=== PATIENT | female | born 1960 | race Caucasian/White ===

== ENCOUNTER 2017-03-17 17:32 | Inpatient (IN) | payer BC ==
--- NOTE | 2017-03-17 18:22 | PDOC ---
History of Present Illness - General Chief Complaint: Pain, Acute Stated Complaint: ABDOMINAL PAIN Time Seen by Provider: 03/17/17 17:46 - History of Present Illness Initial Comments: 03/17/17 18:27 56F with pmh of hypothyroidism present to the ED with right sided lower abdominal pain for the past 2 days. The pain had a sudden onset while she was watching TV. Pain has been constant but worse on movement and palpation. The pain is about 8/10 and doesn't radiate but is also felt in the suprapubic region. The patient states that last night she felt feverish with cold sweat and chills for which she took aspirin and then aleve before sleep. She has decreased appetite, feels gassy. No BM today. No nausea or vomiting or diarrhea. 03/17/17 18:42 Past History - Past Medical History Allergies/Adverse Reactions: Allergies Allergy/AdvReac Type Severity Reaction Status Date / Time No Known Allergies Allergy Verified 10/10/12 10:50 Home Medications: Ambulatory Orders Levothyroxine Sodium [Levo-T] 137 mcg PO DAILY 03/17/17 Levothyroxine Sodium [Unithroid] 150 mcg PO DAILY 03/17/17 Thyroid Disease: Yes - Immunization History Td Vaccination: Yes - Psycho/Social/Smoking Cessation Hx Anxiety: No Suicidal Ideation: No Smoking Status: Yes Smoking History: Current some day smoker Number of Cigarettes Smoked Daily: 1 Information on smoking cessation initiated: Yes 'Breaking Loose' booklet given: 03/17/17 Review of Systems - Review of Systems Constitutional: Yes: Chills, Diaphoresis, Fever ((last night)), Loss of Appetite , Night Sweats HEENTM: No: Symptoms Reported Respiratory: No: Symptoms reported Cardiac (ROS): No: Symptoms Reported ABD/GI: No: Abd. Pain w/ defecation, Diarrhea, Difficulty Swallowing, Nausea, Vomiting : No: Burning, Dysuria, Discharge, Frequency, Hematuria, Pain Neurological: Yes: Headache *Physical Exam - Vital Signs Last Vital Signs Temp Pulse Resp BP Pulse Ox 97.7 F 87 18 125/81 98 03/17/17 17:36 03/17/17 17:36 03/17/17 17:36 03/17/17 17:36 03/17/17 17:36 - Physical Exam General Appearance: Yes: Nourished, Appropriately Dressed. No: Apparent Distress HEENT: positive: EOMI, SANGITA, Normal ENT Inspection Neck: positive: Tender, Trachea midline, Supple. negative: Thyromegaly Respiratory/Chest: positive: Lungs Clear, Normal Breath Sounds. negative: Chest Tender, Respiratory Distress Cardiovascular: positive: Regular Rhythm, Regular Rate, S1, S2 Vascular Pulses: Dorsalis-Pedis (R): 2+, Doralis-Pedis (L): 2+ Gastrointestinal/Abdominal: positive: Tender, Increased Bowel Sounds, Protuberent, Distended, Tenderness (more intense over McBurney's point, less so suprapubically and over the R CVA). negative: Guarding, Rebound, Hernia Musculoskeletal: positive: Normal Inspection, CVA Tenderness (R) (mild) Neurologic: positive: Fully Oriented, Alert, Normal Mood/Affect ED Treatment Course - LABORATORY CBC & Chemistry Diagram: 03/17/17 18:40 03/17/17 18:40 Medical Decision Making - Medical Decision Making 03/17/17 18:40 56F with pmh of hypothyroidism presents with lower right quadrant pain for the past 2 days. Diff: appendicitis, ruptured ovarian cyst. CT abdomen/pelvis pending with CBC and CMP. R/o Appendicitis. 03/17/17 18:43 03/17/17 19:07 *DC/Admit/Observation/Transfer Diagnosis at time of Disposition: Lower abdominal pain - Discharge Dispostion Condition at time of disposition: Stable
[2017-03-17] MEDS ORDERED: SODIUM CHLORIDE 1,000 ML IV STA (18:36)
--- NOTE | 2017-03-17 18:36 | PDOC ---
Attending Attestation - Resident Resident Name: MonetAntonio - ED Attending Attestation I have performed the following: I have examined & evaluated the patient, The case was reviewed & discussed with the resident, I agree w/resident's findings & plan, Exceptions are as noted - HPI HPI: 03/17/17 18:34 Agree with the resident's HPI as documented in the electronic medical record. - Physicial Exam PE: 03/17/17 18:34 Agree with the resident's physical examination as documented in the electronic medical record. - Medical Decision Making 03/17/17 18:34 56-year-old female with history of thyroid disease who presents the emergency department with 2 day history of abdominal pain described as starting in the periumbilical region and now in the right lower quadrant with some anorexia but no nausea or vomiting; she had reported fever at home yesterday but is afebrile in the ED today. She has point tenderness in the right lower quadrant with no rebound or guarding. Differential diagnosis includes but is not limited to: Appendicitis, ovarian cyst, musculoskeletal pain. Plan: 1. Labs 2. CT scan of the abdomen and pelvis 3. Pain management 4. IV fluids for hydration 5. Observe and reevaluate
[2017-03-17 18:52] LABS: BASOPHIL 3.4 % (0-2.0); EOSINOPHIL 1.2 % (0-4.5); MCH 30.5 pg (25.7-33.7); MEAN CELL VOLUME 89.9 fl (80-96); MEAN PLT VOLUME 9.6 fl (7.5-11.1); NEUTROPHILS 56.7 % (42.8-82.8); PLATELET COUNT 212 K/MM3 (134-434); RDW 12.6 % (11.6-15.6); WHITE BLOOD COUNT 10.7 K/mm3 (4.0-10.8)
[2017-03-17 19:10] LABS: ALBUMIN 3.8 g/dl (3.5-5.0); ALK PHOS 68 U/L (32-92); ANION GAP 7 (8-16); BILIRUBIN,TOTAL 0.6 mg/dl (0.2-1.0); CALCIUM 8.9 mg/dl (8.4-10.2); CO2 24 mmol/L (22-28); CREATININE 0.8 mg/dl (0.6-1.3); GLUCOSE,RANDOM 120 mg/dl (74-106); SGOT/AST 18 U/L (10-42); SGPT/ALT 18 U/L (10-40); TOT PROT 6.8 g/dl (6.4-8.3)
[2017-03-17 19:28] LABS: PH,URINE 5.5 (4.5-8); URINE APPEARANCE Clear; URINE BILIRUBIN Negative (NEGATIVE); URINE BLOOD Trace-intact (NEGATIVE); URINE COLOR YELLOW; URINE GLUCOSE (UA) Negative (NEGATIVE); URINE KETONE Negative (NEGATIVE); URINE LEUK ESTERASE 1+ (NEGATIVE); URINE NITRITE Positive (NEGATIVE); URINE PROTEIN Trace (NEGATIVE)
--- NOTE | 2017-03-17 19:33 | PDOC ---
*Physical Exam - Vital Signs Last Vital Signs Temp Pulse Resp BP Pulse Ox 97.7 F 87 18 125/81 98 03/17/17 17:36 03/17/17 17:36 03/17/17 17:36 03/17/17 17:36 03/17/17 17:36 <Ana Hill - Last Filed: 03/17/17 21:21> - Vital Signs Last Vital Signs Temp Pulse Resp BP Pulse Ox 97.7 F 87 18 125/81 98 03/17/17 17:36 03/17/17 17:36 03/17/17 17:36 03/17/17 17:36 03/17/17 17:36 <Susan Villareal [place] - Last Filed: 03/17/17 22:57> ED Treatment Course - LABORATORY CBC & Chemistry Diagram: 03/17/17 18:40 03/17/17 18:40 - ADDITIONAL ORDERS Additional order review: Laboratory Results 03/17/17 03/17/17 18:45 18:40 Sodium 135 L Potassium 4.1 Chloride 104 Carbon Dioxide 24 Anion Gap 7 L BUN 23 H Creatinine 0.8 Creat Clearance w eGFR > 60 Random Glucose 120 H Calcium 8.9 Total Bilirubin 0.6 AST 18 ALT 18 Alkaline Phosphatase 68 Total Protein 6.8 Albumin 3.8 Urine Color Yellow Urine Appearance Clear Urine pH 5.5 Ur Specific [place] 1.020 Urine Protein Trace Urine Glucose (UA) Negative Urine Ketones Negative Urine Blood Trace-intact H Urine Nitrite Positive Urine Bilirubin Negative Urine Urobilinogen 1.0 Ur Leukocyte Esterase 1+ H 03/17/17 18:40 RBC 4.55 MCV 89.9 MCHC 34.0 RDW 12.6 MPV 9.6 Neutrophils % 56.7 Lymphocytes % 31.8 Monocytes % 6.9 Eosinophils % 1.2 Basophils % 3.4 H - RADIOLOGY Radiograph Interpretation: 03/17/17 20:23 Abdominal/Pelvic CT as reviewed by Dr. Vaz reports acute appendicitis with an appendicolith measuring 4 mm that may be extraluminal surrounded by a small plegmon measuring 1.2 cm. No drainable collection/abscess is identified. Right adrenal low attenuation mass measuring 3.2 x 2.3 cm likely representing an adrenal adenoma. Left renal simple exophytic cyst measuring 4.1 cm. Tiny fat- containing umibilical hernia. Questionable tiny gallstones within a partially distended gallbladder. - Medications Given in the ED: ED Medications Discontinued Medications Generic Name Dose Route Start Last Admin Trade Name Kiah PRN Reason Stop Dose Admin Sodium Chloride 1,000 mls @ 1,000 mls/hr 03/17/17 18:36 03/17/17 18:42 Normal Saline - IV 03/17/17 19:35 1,000 mls/hr ASDIR STA Administration <Ana Hill - Last Filed: 03/17/17 21:21> - LABORATORY CBC & Chemistry Diagram: 03/17/17 18:40 03/17/17 18:40 - ADDITIONAL ORDERS Additional order review: Laboratory Results 03/17/17 03/17/17 18:45 18:40 Sodium 135 L Potassium 4.1 Chloride 104 Carbon Dioxide 24 Anion Gap 7 L BUN 23 H Creatinine 0.8 Creat Clearance w eGFR > 60 Random Glucose 120 H Calcium 8.9 Total Bilirubin 0.6 AST 18 ALT 18 Alkaline Phosphatase 68 Total Protein 6.8 Albumin 3.8 Urine Color Yellow Urine Appearance Clear Urine pH 5.5 Ur Specific [place] 1.020 Urine Protein Trace Urine Glucose (UA) Negative Urine Ketones Negative Urine Blood Trace-intact H Urine Nitrite Positive Urine Bilirubin Negative Urine Urobilinogen 1.0 Ur Leukocyte Esterase 1+ H 03/17/17 18:40 RBC 4.55 MCV 89.9 MCHC 34.0 RDW 12.6 MPV 9.6 Neutrophils % 56.7 Lymphocytes % 31.8 Monocytes % 6.9 Eosinophils % 1.2 Basophils % 3.4 H <Susan Villareal - Last Filed: 03/17/17 22:57> Progress Note - Progress Note Progress Note: Care of this patient received from Dr. Harrington. As noted above, abdominal/pelvic CT findings consistent with acute appendicitis : Appendiceal wall thickening with periappendiceal stranding. No evidence of perforation/abscess cavity. Findings discussed with the patient. Zosyn 3.375g IV ordered. Patient's PMD, Dr. Meraz, contacted and case discussed with her. Patient does not admit here. Patient will be admitted to physician concrete batcher for service admissions: Dr. Marie. Meanwhile, Xavi Gu/Josep/Beth. Dr Campos contacted and case discussed with him. The patient should be kept on Zosyn, with surgery planned tomorrow. Dr. Marie contacted; patient will be admitted to her service. Dr. Shah consult for infectious disease (case discussed with him ; he will write orders for Zosyn IV to be continued) 12-lead electrocardiogram performed and interpreted by me. This showed normal sinus rhythm at 77 bpm; axis, intervals are normal; no evidence of acute ST or T -wave abnormality; there is poor R-wave progression in the precordial leads The patient continued to be comfortable without significant nausea or pain; she was transferred to admission bed in stable condition. <Susan Villareal - Last Filed: 03/17/17 22:57> Medical Decision Making - Medical Decision Making 03/17/17 21:21 Phone call placed to patient's PCP, Dr. Meraz. Case discussed. Phone call placed to concrete batcher general surgeon, Dr. Campos, case discussed. Phone call placed to hospitalist Dr. Marie, case discussed. <Ana Hill - Last Filed: 03/17/17 21:21> *DC/Admit/Observation/Transfer - Attestations Scribe Attestion: 03/17/17 20:26 Documentation prepared by Ana Hill, acting as medical review coordinator for Susan Villareal MD. <Ana Hill - Last Filed: 03/17/17 21:21> - Discharge Dispostion Admit: Yes <Susan Villareal - Last Filed: 03/17/17 22:57> Diagnosis at time of Disposition: Acute appendicitis Qualifiers: Acute appendicitis type: with localized peritonitis Qualified Code(s): K35.3 - Acute appendicitis with localized peritonitis - Discharge Dispostion Condition at time of disposition: Stable - Referrals - Patient Instructions - Post Discharge Activity
[2017-03-17] MEDS ORDERED: PIPERACILLIN/TAZOB 3.375 GM 3.375 GM in DEXTROSE 5%-WATER - 50 ML IVPB ONE (20:30)
[2017-03-17] MEDS ORDERED: PIPERACILLIN/TAZOBACTAM 3.375 GM VIAL IVPB ONE (20:35)
[2017-03-17 20:37] LABS: URINE BACTERIA FEW /hpf (NEGATIVE); URINE WBC 15-30 (3-5)
[2017-03-17 22:07] VITALS: BMI 25.7
[2017-03-17] MEDS ORDERED: ONDANSETRON 4 MG/2 ML VIAL IVPB PRN (22:36)
[2017-03-18] MEDS: PIPERACILLIN/TAZOB 3.375 GM 50 ML IVPB SCH ×3 (01:59→18:55)
[2017-03-18] MEDS: SODIUM CHLORIDE 1,000 ML IV SCH (01:59)
[2017-03-18 08:16] LABS: MCH 31.1 pg (25.7-33.7); MCHC 34.1 g/dl (32.0-36.0); MEAN CELL VOLUME 91.1 fl (80-96); MEAN PLT VOLUME 9.8 fl (7.5-11.1); PLATELET COUNT 188 K/MM3 (134-434); RDW 12.5 % (11.6-15.6); WHITE BLOOD COUNT 10.4 K/mm3 (4.0-10.8)
[2017-03-18 08:22] LABS: ALBUMIN 3.2 g/dl (3.5-5.0); ALK PHOS 59 U/L (32-92); ANION GAP 6 (8-16); BILIRUBIN,TOTAL 0.7 mg/dl (0.2-1.0); CALCIUM 8.5 mg/dl (8.4-10.2); CO2 22 mmol/L (22-28); CREATININE 0.8 mg/dl (0.6-1.3); GLUCOSE,RANDOM 114 mg/dl (74-106); SGOT/AST 17 U/L (10-42); SGPT/ALT 15 U/L (10-40); TOT PROT 5.9 g/dl (6.4-8.3)
[2017-03-18 08:35] LABS: INR 1.11 (0.82-1.09); PROTHROMBIN TIME (PATIENT) 12.4 SEC (10.2-13.0)
[2017-03-18] MEDS: PANTOPRAZOLE SODIUM 40 MG/100 ML PRE-DOCKED IVPB SCH (09:32)
--- NOTE | 2017-03-18 13:36 | PN ---
Progress Note (short form) - Note Progress Note: surgery Pt seen and examined. full consult dictated. 56f admitted for appendicitis. 2 days abd pain without nausea and found to have appendicitis on ct. Pt admitted and placed on Zosyn and feels better. afebrile abd- soft, moderate rlq tenderness without rebound or guarding. wbc wnl. Plan- clinically acute appendicitis. will move in direction of surgery. agree with zosyn.
[2017-03-18] MEDS ORDERED: MIDAZOLAM HCL 2 MG/2 ML SINGLE DOSE VIAL ONE (13:44)
[2017-03-18] MEDS ORDERED: ROCURONIUM BROMIDE 50 MG/5 ML VIAL ONE (14:06)
--- NOTE | 2017-03-18 14:06 | CON.CARD ---
Cardiology Consult (text) - Consultation Consultation Note: Cardiology consult was requested by Dr. Marie for pre-op cardiac evaluation. However, patient has acute appendicitis and patient may proceed without further cardiac work-up or intervention as it will only delay her needed surgery. Patient is currently being taken for surgery, which in my opinion is appropriate. This was discussed with Dr. Marie.
[2017-03-18] MEDS ORDERED: NEOSTIGMINE METHYLSULFATE 0.5 MG/ML - 10 ML MDV ONE (15:11)
[2017-03-18] MEDS ORDERED: ONDANSETRON 4 MG/2 ML VIAL ONE (15:11)
[2017-03-18] MEDS ORDERED: DEXAMETHASONE SOD PHOSPHATE 4 MG/1 ML VIAL ONE (15:11)
--- NOTE | 2017-03-18 15:28 | OP ---
Operative Note - Note: Operative Date: 03/18/17 Pre-Operative Diagnosis: acute appendicitis Operation: laparoscopic appendectomy, lavage Findings: retroperitoneal appendix with contained perforation at tip Post-Operative Diagnosis: Same as Pre-op Surgeon: Lionel Campos Anesthesiologist/POST SECONDARY PROFESSIONAL: Bernie Reina Specimens Removed: appendix Estimated Blood Loss (mls): 20 Drains & Tubes with Location: chiquita abscess cavity Operative Report Dictated: Yes
[2017-03-18] MEDS ORDERED: ONDANSETRON 4 MG/2 ML VIAL IVPUSH PRN (15:37)
--- NOTE | 2017-03-18 15:37 | HP ---
Admitting History and Physical - Primary Care Physician PCP: Christina Marie - Admission Chief Complaint: abdominal pain History of Present Illness: 56-year-old female with history of thyroid disease who presents the emergency department with 2 day history of abdominal pain described as starting in the periumbilical region and now in the right lower quadrant with some anorexia but no nausea or vomiting; she had reported fever at home yesterday but is afebrile in t She has point tenderness in the right lower quadrant with no rebound or guarding. - Past Medical History ...: No Endocrine: Yes: Hypothyroidism - Smoking History Smoking history: Current some day smoker Have you smoked in the past 12 months: No Aproximately how many cigarettes per day: 3 - Alcohol/Substance Use Hx Alcohol Use: Yes (socially) Home Medications - Allergies Allergies/Adverse Reactions: Allergies Allergy/AdvReac Type Severity Reaction Status Date / Time No Known Allergies Allergy Verified 10/10/12 10:50 - Home Medications Home Medications: Ambulatory Orders Levothyroxine Sodium [Levo-T] 137 mcg PO DAILY 03/17/17 Levothyroxine Sodium [Unithroid] 150 mcg PO DAILY 03/17/17 Amoxicillin/Potassium Clav [Augmentin 875-125 Tablet] 1 each PO BID #14 tablet 03/19/17 Review of Systems - Review of Systems Gastrointestinal: reports: Abdominal Pain Physical Examination Vital Signs: Vital Signs Temperature 98.2 F 03/18/17 05:59 Pulse Rate 77 03/18/17 05:59 Respiratory Rate 20 03/18/17 05:59 Blood Pressure 95/54 03/18/17 05:59 O2 Sat by Pulse Oximetry (%) 96 03/18/17 05:59 Constitutional: Yes: Calm HENT: Yes: Atraumatic Neck: Yes: Supple Cardiovascular: Yes: Regular Rate and Rhythm Respiratory: Yes: CTA Bilaterally Gastrointestinal: Yes: Normal Bowel Sounds, Tenderness (at the surgery site) Extremities: Yes: WNL Labs: CBC, BMP 03/18/17 07:45 03/18/17 07:45 Problem List - Problems (1) Acute appendicitis Assessment/Plan: came back from OR after surgery IVF IV ABX full liquid diet Code(s): K35.80 - UNSPECIFIED ACUTE APPENDICITIS Qualifiers: Acute appendicitis type: with localized peritonitis Qualified Code(s): K35.3 - Acute appendicitis with localized peritonitis (2) Lower abdominal pain Code(s): R10.30 - LOWER ABDOMINAL PAIN, UNSPECIFIED Assessment/Plan Laboratory Tests 03/17/17 03/17/17 03/17/17 18:40 18:40 18:45 WBC 10.7 RBC 4.55 Hgb 13.9 Hct 40.9 MCV 89.9 MCH 30.5 MCHC 34.0 RDW 12.6 Plt Count 212 MPV 9.6 Neutrophils % 56.7 Lymphocytes % 31.8 Monocytes % 6.9 Eosinophils % 1.2 Basophils % 3.4 H INR PTT (Actin FS) Sodium 135 L Potassium 4.1 Chloride 104 Carbon Dioxide 24 Anion Gap 7 L BUN 23 H Creatinine 0.8 Creat Clearance w eGFR > 60 Random Glucose 120 H Calcium 8.9 Total Bilirubin 0.6 AST 18 ALT 18 Alkaline Phosphatase 68 Total Protein 6.8 Albumin 3.8 Urine Color Yellow Urine Appearance Clear Urine pH 5.5 Ur Specific [place] 1.020 Urine Protein Trace Urine Glucose (UA) Negative Urine Ketones Negative Urine Blood Trace-intact H Urine Nitrite Positive Urine Bilirubin Negative Urine Urobilinogen 1.0 Ur Leukocyte Esterase 1+ H Urine RBC 2-3 Urine WBC 15-30 Ur Epithelial Cells Few Urine Bacteria Few 03/18/17 03/18/17 03/18/17 07:45 07:45 07:45 WBC 10.4 RBC 4.03 Hgb 12.5 D Hct 36.7 MCV 91.1 MCH 31.1 MCHC 34.1 RDW 12.5 Plt Count 188 MPV 9.8 Neutrophils % Lymphocytes % Monocytes % Eosinophils % Basophils % INR 1.11 PTT (Actin FS) 26.0 L Sodium 136 Potassium 4.1 Chloride 108 H Carbon Dioxide 22 Anion Gap 6 L BUN 14 D Creatinine 0.8 Creat Clearance w eGFR > 60 Random Glucose 114 H Calcium 8.5 Total Bilirubin 0.7 AST 17 ALT 15 Alkaline Phosphatase 59 Total Protein 5.9 L Albumin 3.2 L Urine Color Urine Appearance Urine pH Ur Specific [place] Urine Protein Urine Glucose (UA) Urine Ketones Urine Blood Urine Nitrite Urine Bilirubin Urine Urobilinogen Ur Leukocyte Esterase Urine RBC Urine WBC Ur Epithelial Cells Urine Bacteria Active Medications Generic Name Dose Route Start Last Admin Trade Name Freq PRN Reason Stop Dose Admin Acetaminophen 1,000 mg 03/17/17 22:37 Ofirmev Injection - IVPB Q6H PRN PAIN Fentanyl 50 mcg 03/18/17 15:37 Sublimaze Injection - IVPUSH 03/21/17 15:38 [id number] PRN PAIN Piperacillin Sod/Tazobactam Sod 50 mls @ 100 mls/hr 03/18/17 02:00 03/18/17 09: 32 Zosyn 3.375gm Ivpb (Pre-Docked) IVPB 100 mls/hr Q8H-IV XAVIER Administration Protocol Sodium Chloride 1,000 mls @ 100 mls/hr 03/17/17 22:45 03/18/17 01:59 Normal Saline - IV 100 mls/hr ASDIR XAVIER Administration Lactated Ringer's 1,000 mls @ 125 mls/hr 03/18/17 15:45 Lactated Ringers Solution IV ASDIR XAVIER Ondansetron HCl 4 mg 03/17/17 22:36 Zofran Injection IVPB Q6H PRN NAUSEA AND/OR VOMITING Ondansetron HCl 4 mg 03/18/17 15:37 Zofran Injection IVPUSH 03/18/17 21:38 Q6H PRN NAUSEA AND/OR VOMITING Pantoprazole Sodium 40 mg 03/18/17 10:00 03/18/17 09:32 Protonix 40mg Ivpb (Pre-Docked) IVPB 40 mg DAILY XAVIER Administration
[2017-03-18] MEDS ORDERED: LACTATED RINGERS SOLUTION 1,000 ML IV SCH (15:45)
[2017-03-18] MEDS ORDERED: oxyCODONE HCL 5 MG TABLET PO PRN (15:45)
[2017-03-18] MEDS ORDERED: morphine CARPU-JECT 4 MG/1 ML DISP.SYRIN IVPB PRN (15:45)
[2017-03-18] MEDS ORDERED: PROMETHAZINE HCL 25 MG/1 ML VIAL ONE (15:46)
[2017-03-18] MEDS: PROMETHAZINE HCL 25 MG/1 ML VIAL IVPUSH PRN ×2 (15:47→16:05)
[2017-03-18] MEDS ORDERED: ACETAMINOPHEN INJECTION 100 ML IVPB ONE (16:08)
[2017-03-18] MEDS: ACETAMINOPHEN 1000 MG/100 ML VIAL (NON FORMULARY) IVPB PRN (16:10)
[2017-03-18] MEDS ORDERED: LEVOTHYROXINE SODIUM 137 MCG PO SCH (16:15)
--- NOTE | 2017-03-18 17:34 | CONSULT ---
Consult Consult Specialty:: infectious diseases Referred by:: Reason for Consultation:: ac appendicitis - History of Present Illness Chief Complaint: abd pain History of Present Illness: 56F with pmh of hypothyroidism with right sided lower abdominal pain for the past 2 days which started sudeenly patient did not feel well and came to the hospital and was diagnosed with acute appendicitis patient taken to the operating room and was operated and now feels well and has a chiquita drain in place no complaints as of now except pain - History Source History Provided By: Patient Limitations to Obtaining History: No Limitations - Past Medical History ...: No - Alcohol/Substance Use Hx Alcohol Use: Yes (socially) - Smoking History Smoking history: Current some day smoker Have you smoked in the past 12 months: No Aproximately how many cigarettes per day: 3 Home Medications - Allergies Allergies/Adverse Reactions: Allergies Allergy/AdvReac Type Severity Reaction Status Date / Time No Known Allergies Allergy Verified 10/10/12 10:50 - Home Medications Home Medications: Ambulatory Orders Levothyroxine Sodium [Levo-T] 137 mcg PO DAILY 03/17/17 Levothyroxine Sodium [Unithroid] 150 mcg PO DAILY 03/17/17 Review of Systems - Review of Systems Constitutional: reports: Fever Eyes: reports: No Symptoms HENT: reports: No Symptoms Neck: reports: No Symptoms Cardiovascular: reports: No Symptoms Respiratory: reports: No Symptoms Gastrointestinal: reports: Abdominal Pain Genitourinary: reports: No Symptoms Musculoskeletal: reports: No Symptoms Integumentary: reports: No Symptoms Neurological: reports: No Symptoms Endocrine: reports: No Symptoms Hematology/Lymphatic: reports: No Symptoms Psychiatric: reports: No Symptoms Physical Exam Vital Signs: Vital Signs Temperature 98.2 F 03/18/17 17:32 Pulse Rate 58 L 03/18/17 17:32 Respiratory Rate 17 03/18/17 17:32 Blood Pressure 110/76 03/18/17 17:32 O2 Sat by Pulse Oximetry (%) 99 03/18/17 16:20 Constitutional: Yes: Well Nourished, Calm, Mild Distress Eyes: Yes: Conjunctiva Clear HENT: Yes: Atraumatic, Normocephalic Neck: Yes: Supple, Trachea Midline Cardiovascular: Yes: Regular Rate and Rhythm Respiratory: Yes: Regular, CTA Bilaterally Gastrointestinal: Yes: Soft, Tenderness (at the operated site), Other (chiquita drain in place) Musculoskeletal: Yes: WNL Extremities: Yes: WNL Wound/Incision: Yes: Clean/Dry Neurological: Yes: Alert, Oriented Psychiatric: Yes: Alert, Oriented Labs: CBC, BMP 03/18/17 07:45 03/18/17 07:45 Imaging - Results Cat Scan: Report Reviewed, Image Reviewed Assessment/Plan - Problems (1) Acute appendicitis wiht perforation at the tip Code(s): K35.80 - UNSPECIFIED ACUTE APPENDICITIS Qualifiers: Acute appendicitis type: with localized peritonitis Qualified Code(s): K35.3 - Acute appendicitis with localized peritonitis (2) Lower abdominal pain Code(s): R10.30 - LOWER ABDOMINAL PAIN, UNSPECIFIED hypothyroidism plan continue iv abx monitor once patient stable will consider deescalating rest as per primary
--- NOTE | 2017-03-18 17:57 | CONS ---
DATE OF CONSULTATION: 03/18/2017 REASON FOR CONSULTATION: Acute appendicitis. This is an emergency room consultation at request of the emergency room physician. BRIEF HISTORY: This is a 56-year-old female who presented to [facility] with 2-day history of lower abdominal pain. She denied nausea, denied vomiting, denied diarrhea, denied blood in her stool. While in the emergency room, she was noted to have right lower quadrant tenderness and had a CAT scan of her abdomen and pelvis which was consistent with acute appendicitis. She was admitted to the hospital, started on intravenous Zosyn antibiotic, and a surgical consultation was requested. Overnight, she feels somewhat better. PAST MEDICAL HISTORY: Significant for hypothyroid disease. ALLERGIES: She has no known drug allergies. HOME MEDICATIONS: Include Synthroid. PAST SURGICAL HISTORY: Includes a shoulder surgery without complication. SOCIAL HISTORY: Positive for occasional alcohol as well as tobacco consumption. She has been encouraged to quit. FAMILY HISTORY: Significant for a sister with lymphoma. REVIEW OF SYSTEMS: General: Denies fatigue or malaise. Cardiac: Denies chest pain or palpitations. Respiratory: Denies shortness of breath or wheeze. Gastrointestinal: As stated in the HPI. Genitourinary: Denies dysuria. Musculoskeletal: Denies joint pain and joint swelling. Psychiatric: Denies anxiety, depression, or hearing voices. PHYSICAL EXAMINATION: General: This is a well-developed, well-nourished, 56-year-old female in no distress. Vital Signs: She is afebrile. Her vital signs are stable. HEENT: Her head is normocephalic. Her sclerae are anicteric. Neck: Supple. Chest: Clear. Abdomen: Soft. It is nondistended. She has no surgical scars. She has moderate right lower quadrant tenderness without rebound or guarding. Extremities: No edema. LABORATORY DATA: On review of her laboratory, white blood cell count is normal at 10.4. Her chemistries are unremarkable. IMAGING: Review of her imaging is as stated in HPI. ASSESSMENT: This is a 56-year-old female with right lower quadrant pain, right lower quadrant tenderness, and CAT scan evidence of acute appendicitis. Clinically, this is acute appendicitis. I agree with admission. I agree with Zosyn antibiotic to cover Escherichia coli and other enteric as well as [id number]. At this point, we will move in the direction of surgery. Risks and benefits of surgery have been explained to the patient in detail. These are including, but not limited to, the possibility of conversion to open, the possibility of injury to viscera or bladder, the possibility of blood loss requiring blood transfusion, the possibility of staple line dehiscence, the possibility of infection, the possibility of future obstruction, the possibility of future hernia, plus a multitude of medical risks including, but not limited to, cardiac, neurologic, pulmonary, and vascular complications and even . Patient understands these risks and is agreeable to surgery. She has also been offered medical management of appendicitis and declines. She prefers a more definitive nature of surgery to likely decrease length of stay and the ruling out of an appendiceal neoplasm. Also of note, the patient does appear to have a small ventral hernia on exam. This will not be addressed during the appendiceal surgery. DO BILLY FERNANDES/[id number]
[2017-03-18] MEDS ORDERED: LEVOTHYROXINE NA 25 MCG TABLET (FP) ONE (18:47)
[2017-03-18] MEDS ORDERED: LEVOTHYROXINE NA 112 MCG TABLET (FP) ONE (18:47)
[2017-03-18] MEDS: LEVOTHYROXINE 112 MCG, LEVOTHYROXINE 25 MCG PO SCH (18:55)
[2017-03-19] MEDS: PIPERACILLIN/TAZOB 3.375 GM 50 ML IVPB SCH ×2 (01:54→09:24)
[2017-03-19] MEDS ORDERED: LEVOTHYROXINE NA 112 MCG TABLET (FP) ONE (06:32)
[2017-03-19] MEDS ORDERED: LEVOTHYROXINE NA 25 MCG TABLET (FP) ONE (06:32)
[2017-03-19 06:39] VITALS: PULSE 60
[2017-03-19] MEDS: LEVOTHYROXINE 112 MCG, LEVOTHYROXINE 25 MCG PO SCH (06:39)
[2017-03-19] MEDS ORDERED: LEVOTHYROXINE 112 MCG, LEVOTHYROXINE 25 MCG PO SCH ×2 (07:00)
[2017-03-19 08:12] LABS: MCH 31.8 pg (25.7-33.7); MCHC 34.4 g/dl (32.0-36.0); MEAN CELL VOLUME 92.4 fl (80-96); MEAN PLT VOLUME 10.6 fl (7.5-11.1); PLATELET COUNT 165 K/MM3 (134-434); RDW 12.5 % (11.6-15.6); WHITE BLOOD COUNT 12.1 K/mm3 (4.0-10.8)
[2017-03-19 08:13] LABS: BASOPHIL 0.7 % (0-2.0); EOSINOPHIL 0.1 % (0-4.5); MCHC 35.3 g/dl (32.0-36.0); MEAN CELL VOLUME 90.6 fl (80-96); MEAN PLT VOLUME 10.3 fl (7.5-11.1); NEUTROPHILS 76.5 % (42.8-82.8); PLATELET COUNT 165 K/MM3 (134-434); RDW 12.5 % (11.6-15.6); WHITE BLOOD COUNT 11.8 K/mm3 (4.0-10.8)
[2017-03-19] MEDS: ACETAMINOPHEN 1000 MG/100 ML VIAL (NON FORMULARY) IVPB PRN (08:16)
[2017-03-19 08:22] LABS: ALK PHOS 55 U/L (32-92); ANION GAP 8 (8-16); BILIRUBIN,TOTAL 0.4 mg/dl (0.2-1.0); CALCIUM 8.8 mg/dl (8.4-10.2); CO2 24 mmol/L (22-28); CREATININE 0.8 mg/dl (0.6-1.3); GLUCOSE,RANDOM 131 mg/dl (74-106); SGOT/AST 33 U/L (10-42); SGPT/ALT 33 U/L (10-40); TOT PROT 5.8 g/dl (6.4-8.3)
[2017-03-19] MEDS: SODIUM CHLORIDE 1,000 ML IV SCH (09:11)
[2017-03-19] MEDS: PANTOPRAZOLE SODIUM 40 MG/100 ML PRE-DOCKED IVPB SCH (09:24)
[2017-03-19] MEDS ORDERED: ENOXAPARIN NA (PORCINE) 40 MG/0.4 ML DISP.SYRIN SQ SCH (10:00)
--- NOTE | 2017-03-19 10:48 | OP ---
DATE OF OPERATION: 03/18/2017 PREOPERATIVE DIAGNOSIS: Acute appendicitis. POSTOPERATIVE DIAGNOSIS: Acute appendicitis. PROCEDURE: Laparoscopic appendectomy, drainage of abscess, lavage. SURGEON: Lionel Campos DO CATALOGUE ILLUSTRATOR: None. ANESTHESIOLOGIST: Bernie Reina MD SPECIMEN: Appendix. INTRAOPERATIVE FINDINGS: A retrocecal appendix with a perforated, contained tip of the appendix. DRAINS: Nikolai-Zheng drain in the abscess cavity. BLOOD LOSS: Approximately 30 mL. COMPLICATIONS: None. DISPOSITION: Recovery room in stable condition. BRIEF HISTORY: This is a 56-year-old female who was admitted to [facility] for acute appendicitis. She presents now for surgery. She was placed on Zosyn antibiotic. DESCRIPTION OF PROCEDURE: The patient was placed in the supine position. After general anesthesia was initiated, the abdomen was prepped and draped in sterile fashion, and a Mancini catheter was inserted. Next, a vertical incision was made infraumbilical with scalpel used to go through skin and subcutaneous tissue. A ventral hernia was noted above this incision, which was not addressed at the time of surgery. Next, a 0 Vicryl stitch was placed across the fascial defect and used to secure the Betzaida trocar. Pneumoperitoneum was then created, followed by insertion of a 5-mm 30-degree laparoscope. Next, two 5-mm trocars were placed; one was suprapubic with care to avoid injuring the bladder and one in the left lower quadrant lateral to rectus muscle. At this point, attention was turned toward the right lower quadrant. The appendix was seen. Base appeared normal, but the distal portion was retrocecal, and the tip was thickened and inflamed. At this point, a window was made at the base. The MultiFire vascular load 30-mm stapler was used to divide the appendix at its base. The staple line was inspected. It was intact. There was no bleeding. No breaks. No sign of ischemia. The LigaSure device was then used to divide the mesoappendix in multiple welds. The retroperitoneal attachments of the appendix were taken down. Upon the lateral and posterior cecum, a small area of necrosis and abscess cavity with approximately 3 mL of pus was encountered. This was suctioned and irrigated. The tip of the appendix, which was hardened, was removed in fragments. The remainder of the appendix was placed in a specimen bag, removed through the infraumbilical trocar site and sent to Pathology marked as specimen. A vigorous lavage was done of this abscess cavity. The pelvis was also suctioned and irrigated. A Nikolai- Zheng drain was placed with its tip in the abscess cavity and brought out through the suprapubic trocar site and secured with a silk drain stitch. Trocars were then removed under direct visualization. No bleeding was noted. The fascia of the infraumbilical trocar site was then closed with multiple interrupted 0 Vicryl sutures. The 2 remaining skin incisions were closed with subcuticular Biosyn, and Dermabond dressing was placed. Patient tolerated the procedure well, and the operation terminated. Mancini catheter, which was placed in the beginning of the operation, was removed at the end. DO BILLY FERNANDES/[id number] MTDD
--- NOTE | 2017-03-19 11:08 | PN ---
Progress Note, Physician History of Present Illness: Pt currently alert and fully responsive. Reports mild RLQ tenderness. Currently on full liquid diet, without nausea/vomiting. Afebrile. No other complaints - Current Medication List Current Medications: Active Medications Acetaminophen (Ofirmev Injection -) 1,000 mg IVPB Q6H PRN PRN Reason: PAIN Last Admin: 03/19/17 08:16 Dose: 1,000 mg Enoxaparin Sodium (Lovenox -) 40 mg SQ DAILY [facility] Last Admin: 03/19/17 09:24 Dose: 40 mg Fentanyl (Sublimaze Injection -) 50 mcg IVPUSH [id number] PRN PRN Reason: PAIN Stop: 03/21/17 15:38 Last Admin: 03/18/17 16:18 Dose: 50 mcg Piperacillin Sod/Tazobactam Sod (Zosyn 3.375gm Ivpb (Pre-Docked)) 50 mls @ 100 mls/hr IVPB Q8H-IV XAVIER PRN Reason: Protocol Last Admin: 03/19/17 09:24 Dose: 100 mls/hr Sodium Chloride (Normal Saline -) 1,000 mls @ 100 mls/hr IV ASDIR [facility] Last Admin: 03/19/17 09:11 Dose: Not Given Lactated Ringer's (Lactated Ringers Solution) 1,000 mls @ 125 mls/hr IV ASDIR X[facility]IER Last Admin: 03/19/17 09:11 Dose: Not Given Levothyroxine Sodium 112 mcg/ (Levothyroxine Sodium 25 mcg) 137 mcg PO DAILY@ 0700 [facility] Last Admin: 03/19/17 06:39 Dose: 137 mcg Morphine Sulfate (Morphine Injection -) 4 mg IVPB Q3H PRN PRN Reason: MODERATE PAIN Ondansetron HCl (Zofran Injection) 4 mg IVPB Q6H PRN PRN Reason: NAUSEA AND/OR VOMITING Oxycodone HCl (Roxicodone -) 7.5 mg PO Q4H PRN PRN Reason: PAIN Pantoprazole Sodium (Protonix 40mg Ivpb (Pre-Docked)) 40 mg IVPB DAILY [facility] Last Admin: 03/19/17 09:24 Dose: 40 mg - Objective Vital Signs: Vital Signs Temperature 98.1 F 03/19/17 06:37 Pulse Rate 60 03/19/17 06:37 Respiratory Rate 18 03/19/17 06:37 Blood Pressure 101/55 03/19/17 06:37 O2 Sat by Pulse Oximetry (%) 97 03/19/17 06:38 Constitutional: Yes: No Distress, Calm Eyes: Yes: WNL HENT: Yes: WNL Neck: Yes: WNL Cardiovascular: Yes: Regular Rate and Rhythm Respiratory: Yes: Regular Gastrointestinal: Yes: Normal Bowel Sounds, Soft, Tenderness Wound/Incision: Yes: Draining (AGNIESZKA drain in place with mild amount serosanguinous fluid) Labs: CBC, BMP 03/19/17 07:30 03/19/17 07:30 INR, PTT INR 1.11 (0.82-1.09) 03/18/17 07:45 Assessment/Plan Acute appendicitis - pt currently stable - on IV antibiotics, may switch to Augmentin 875mg PO BID x 5 days if d/c home
[2017-03-19 15:05] VITALS: BP 108/54; TEMP 98.5
--- NOTE | 2017-03-19 15:09 | PN ---
Progress Note (short form) - Note Progress Note: surgery pt seen and examined earlier. feels well. wants to go home. tolerating liquids, voiding, ambulating. afebriel afebrile abd- soft, nt, nd, incision clean . chiquita serous Plan- perforated, contained, appendicitis. clinically s/p appendectomy. surgically stable for d/c on augmentin 875 bid with drain. f/u Wed for drain removal. ok to shower. no lifting. 2 weeks off work.
--- NOTE | 2017-03-19 17:01 | DS ---
Physical Examination Vital Signs: Vital Signs Temperature 98.5 F 03/19/17 15:04 Pulse Rate 60 03/19/17 15:04 Respiratory Rate 18 03/19/17 15:04 Blood Pressure 108/54 03/19/17 15:04 O2 Sat by Pulse Oximetry (%) 97 03/19/17 09:00 Constitutional: Yes: No Distress HENT: Yes: Atraumatic Neck: Yes: Supple Cardiovascular: Yes: Regular Rate and Rhythm Respiratory: Yes: CTA Bilaterally Gastrointestinal: Yes: Normal Bowel Sounds, Tenderness (at the surgery site drain in place) Extremities: Yes: WNL Neurological: Yes: Alert, Oriented Labs: CBC, BMP 03/19/17 07:30 03/19/17 07:30 Discharge Summary Reason For Visit: ACUTE APPENDICITIS Current Active Problems Acute appendicitis (Acute) Condition: Stable - Instructions Diet, Activity, Other Instructions: surgically stable for d/c on augmentin 875 bid with drain. f/u Wed for drain removal. ok to shower. no lifting. 2 weeks off work. Referrals: Christina Marie MD [Staff Physician] - Gricelda Meraz MD [Primary Care Provider] - - Home Medications Comprehensive Discharge Medication List: Ambulatory Orders Levothyroxine Sodium [Levo-T] 137 mcg PO DAILY 03/17/17 Levothyroxine Sodium [Unithroid] 150 mcg PO DAILY 03/17/17 Amoxicillin/Potassium Clav [Augmentin 875-125 Tablet] 1 each PO BID #14 tablet 03/19/17 dc home fu surgery on tuesday next week drain in place on po abx for 1 week
--- NOTE | 2017-03-23 17:11 | PATH ---
Surgical Pathology Report Patient Name: SHELBI MARTINEZ Med. Rec. #: [id number] /Age/Gender: 1960 (Age: 56) / F Account: [id number] Location: [facility] Taken: 03/18/2017 Received: 03/18/2017 Reported: 03/23/2017 Physicians: Lionel Campos M.D. Specimen(s) Received APPENDIX Clinical History Acute appendicitis Final Diagnosis APPENDIX, APPENDECTOMY: APPENDIX WITH ACUTE APPENDICITIS, PERIAPPENDICITIS AND SESSILE SERRATED ADENOMA OF THE APPENDIX (SEE COMMENT). Comment: Acute appendicitis is seen within the distal part and the tip of the appendix. Sessile serrated adenoma is located in the distal part of the appendix, proximal to acute appendicitis; resection margin is negative for sessile serrated adenoma. Electronically Signed Pranav Newton M.D. Gross Description Received in formalin, labeled "appendix" is a 6.0 cm. in length vermiform appendix with a stapled margin of resection and moderate attached fat. The serosa is daniel with attached daniel-chapman exudate at the tip of the appendix. Sectioning reveals focally hemorrhagic lumen near the tip of the appendix. The specimen is submitted entirely submitted as follows: cassette #1 tip of the appendix, medical claims representative cross-sections and resection margin inked black; cassettes 2 and 3: additional cross-sections of the appendix. AF/03/21/2017 final/03/21/2017
== END 2017-03-19 18:28 | disposition home or self-care (01) | DRG 340 ==
LOC: FER 17:32 → FM/S 21:35
PROVIDERS: ADMIT Internal Medicine; ATTEND Internal Medicine
PROC: 0W9G40Z Drainage of Peritoneal Cavity with Drainage Device, Percutaneous Endoscopic Approach (ICD-10-PCS; 2017-03-18)
PROC: 3E1M38Z Irrigation of Peritoneal Cavity using Irrigating Substance, Percutaneous Approach (ICD-10-PCS; 2017-03-18)
PROC: 0DTJ4ZZ Resection of Appendix, Percutaneous Endoscopic Approach (ICD-10-PCS; principal; 2017-03-18 14:34)
DX: K35.2 Acute appendicitis with generalized peritonitis (principal); E03.9 Hypothyroidism, unspecified; F17.210 Nicotine dependence, cigarettes, uncomplicated
CPT/HCPCS: 36415; 74176-TC; 80053; 81003; 81015; 84443; 85025; 85027; 85610; 85730; 88304-TC; 94760; 99283-25

== ENCOUNTER 2017-05-31 07:30 | Emergency (ER) | payer BC ==
[2017-05-31 07:33] VITALS: BP 139/55; PULSE 79; TEMP 98.1; BMI 25.1
--- NOTE | 2017-05-31 07:39 | PDOC ---
History of Present Illness - General Chief Complaint: Eye Problem Stated Complaint: EYE PROBLEM Time Seen by Provider: 05/31/17 07:37 - History of Present Illness Initial Comments: 05/31/17 07:38 Ms. Hughes is a 56 yo female with a significant past medical history of Thyroid disease who presents to the emergency department with a 3 day history of R upper eye swelling and mild pain. She reports the pain is constant and not related to eye movement. Denies any blurred or double vision. The patient denies chest pain, shortness of breath, headache and dizziness. Denies fever, chills, nausea, vomit, diarrhea and constipation. Denies dysuria, frequency, urgency and hematuria. Allergies: NKDA Past History - Past Medical History Allergies/Adverse Reactions: Allergies Allergy/AdvReac Type Severity Reaction Status Date / Time No Known Allergies Allergy Verified 05/31/17 07:33 Home Medications: Ambulatory Orders Clindamycin [Cleocin -] 300 mg PO TID #21 capsule 05/31/17 Levothyroxine [Synthroid -] 1,500 mcg PO DAILY 05/31/17 Thyroid Disease: Yes - Surgical History Appendectomy: Yes - Immunization History Td Vaccination: Yes - Suicide/Smoking/Psychosocial Hx Smoking Status: Yes Smoking History: Never smoked Have you smoked in the past 12 months: No Number of Cigarettes Smoked Daily: 3 'Breaking Loose' booklet given: 03/17/17 Hx Alcohol Use: No Drug/Substance Use Hx: No Substance Use Type: None Hx Substance Use Treatment: No Review of Systems - Review of Systems Comments:: 05/31/17 07:38 GENERAL/CONSTITUTIONAL: No fever or chills. No weakness. HEAD, EYES, EARS, NOSE AND THROAT: +Swelling and some redness above the Right eye with occasional discharge.. No change in vision. No ear pain. No sore throat. CARDIOVASCULAR: No chest pain or shortness of breath RESPIRATORY: No cough, wheezing, or hemoptysis. GASTROINTESTINAL: No nausea, vomiting, diarrhea or constipation. GENITOURINARY: No dysuria, frequency, or change in urination. MUSCULOSKELETAL: No joint or muscle swelling or pain. No neck or back pain. SKIN: No rash NEUROLOGIC: No headache, vertigo, loss of consciousness, or change in strength/ sensation. ENDOCRINE: No increased thirst. No abnormal weight change HEMATOLOGIC/LYMPHATIC: No anemia, easy bleeding, or history of blood clots. ALLERGIC/IMMUNOLOGIC: No hives or skin allergy. *Physical Exam - Vital Signs Last Vital Signs Temp Pulse Resp BP Pulse Ox 98.1 F 79 18 139/55 100 05/31/17 07:31 05/31/17 07:31 05/31/17 07:31 05/31/17 07:31 05/31/17 07:31 - Physical Exam Comments: 05/31/17 07:38 GENERAL: Awake, alert, and fully oriented, in no acute distress HEAD: No signs of trauma, normocephalic, atraumatic EYES: +Swelling above right orbit with minimal erythema. No pain with eye movement. PERRLA, EOMI, sclera anicteric ENT: Auricles normal inspection, hearing grossly normal, nares patent, oropharynx clear without exudates. Moist mucosa NECK: Normal ROM, supple, no lymphadenopathy, JVD, or masses LUNGS: No distress, speaks full sentences, clear to auscultation bilaterally HEART: Regular rate and rhythm, normal S1 and S2, no murmurs, rubs or gallops, peripheral pulses normal and equal bilaterally. ABDOMEN: Soft, nontender, normoactive bowel sounds. No guarding, no rebound. No masses EXTREMITIES: Normal inspection, Normal range of motion, no edema. No clubbing or cyanosis. NEUROLOGICAL: Cranial nerves II through XII grossly intact. Normal speech, normal gait, no focal sensorimotor deficits SKIN: Warm, Dry, normal turgor, no rashes or lesions noted. Medical Decision Making - Medical Decision Making 05/31/17 07:56 Patient presents with right orbital swelling stye rule out preseptal cellulitis. Will proscribe clinadmycin for treatment to be taken if no resolution of stye with warm compresses. *DC/Admit/Observation/Transfer Diagnosis at time of Disposition: Hordeolum externum (stye) Qualifiers: Laterality: right Eyelid: upper Qualified Code(s): H00.011 - Hordeolum externum right upper eyelid; H00.011 - Hordeolum externum right upper eyelid - Discharge Dispostion Disposition: HOME - Patient Instructions Printed Discharge Instructions: DI for Blepharitis
[2017-05-31] MEDS ORDERED: CLINDAMYCIN HCL 150 MG CAPSULE (FP) PO ONE (07:57)
[2017-05-31] MEDS ORDERED: CLINDAMYCIN HCL 150 MG CAPSULE (FP) ONE (07:59)
--- NOTE | 2017-05-31 08:15 | PDOC ---
Attending Attestation - Resident Resident Name: Matt Shah - ED Attending Attestation I have performed the following: I have examined & evaluated the patient, The case was reviewed & discussed with the resident, I agree w/resident's findings & plan, Exceptions are as noted - Medical Decision Making 05/31/17 08:13 A portion of this note was written by my scribe, under my supervision Vital Signs Temp Pulse Resp BP Pulse Ox 98.1 F 79 18 139/55 100 05/31/17 07:31 05/31/17 07:31 05/31/17 07:31 05/31/17 07:31 05/31/17 07:31 This is likely a stye. Warm compresses, supportive care. Pt instructed if she develops any erythema or redness extending beyond the eyelid, she will need to see her doctor for potential preseptal cellulitis. Return precautions given. <Miguel Angel De Souza - Last Filed: 05/31/17 08:13> - HPI HPI: 05/31/17 09:46 56 yr old female, with significant past medical history of hypothyroidism, who presents to the emergency room with 3 days of right eyelid pain and swelling. Denies changes in vision. Denies headache, lightheadedness. Denies fever, chills , nausea, vomiting. Allergies: NKDA - Physicial Exam PE: 05/31/17 09:48 GENERAL: Awake, alert, and fully oriented, in no acute distress HEAD: No signs of trauma EYES: +palpable sty on the right upper eyelid with mild erythema. No injected sclera. PERRLA, EOMI, sclera anicteric. ENT: Auricles normal inspection, hearing grossly normal, nares patent, oropharynx clear without exudates. Moist mucosa NECK: Normal ROM, supple, no lymphadenopathy, JVD, or masses EXTREMITIES: Normal range of motion, no edema. No clubbing or cyanosis. No cords, erythema, or tenderness NEUROLOGICAL: Cranial nerves II through XII grossly intact. Normal speech, normal gait SKIN: Warm, Dry, normal turgor, no rashes or lesions noted. <Sneha Vogt - Last Filed: 05/31/17 09:51>
== END 2017-05-31 08:27 | disposition home or self-care (01) ==
LOC: JER 07:30
DX: H00.011 Hordeolum externum right upper eyelid (principal)
CPT/HCPCS: 99281-25

== ENCOUNTER 2018-08-25 18:41 | Observation (INO) | payer BC ==
[2018-08-25 18:50] VITALS: BMI 25.1
--- NOTE | 2018-08-25 19:00 | PDOC ---
Attending Attestation - HPI HPI: 08/25/18 19:09 The patient is a 57 year old female, with a significant PMH of hypothyroidism, who presents to the emergency department with left sided facial droop and slurred speech at approx 6 pm. The patient states she went to the bathroom and after exiting the restroom of the restaurant felt a lethargic sensation and her friends noticed her slurring of speech and drool with left sided facial droop. The patient also endorses 2 days of right sided upper tooth pain which she believes is an abscess. The patient denies any numbness, tingling or loss of sensation. Denies any weakness. Denies any recent injuries or trauma. Denies any visual changes or blurry vision. The patient denies chest pain, shortness of breath, headache and dizziness. Denies fever, chills, nausea, vomit, diarrhea and constipation. Denies dysuria, frequency, urgency and hematuria. Allergies: NKA Documentation prepared by Uziel Lay, acting as nuclear medical tech for Juanita Connell MD. <Uziel Lay - Last Filed: 08/25/18 21:46> - Resident Resident Name: Pranav Ware - ED Attending Attestation I have performed the following: I have examined & evaluated the patient, The case was reviewed & discussed with the resident, I agree w/resident's findings & plan, Exceptions are as noted - Physicial Exam PE: GENERAL: Awake, alert, and fully oriented, in no acute distress HEAD: No signs of trauma EYES: PERRLA, EOMI, sclera anicteric, conjunctiva clear ENT: Auricles normal inspection, hearing grossly normal, nares patent, oropharynx clear without exudates. Moist mucosa. +Swelling with tenderness over tooth #7. NECK: Normal ROM, supple, no lymphadenopathy, JVD, or masses. LUNGS: Breath sounds equal, clear to auscultation bilaterally. No wheezes, and no crackles HEART: Regular rate and rhythm, normal S1 and S2, no murmurs, rubs or gallops ABDOMEN: Soft, nontender, normoactive bowel sounds. No guarding, no rebound. No masses EXTREMITIES: Normal range of motion, no edema. No clubbing or cyanosis. No cords, erythema, or tenderness NEUROLOGICAL: Cranial nerves II through XII grossly intact. Motor and sensation intact. Slight slurring of speech. SKIN: Warm, Dry, normal turgor, no rashes or lesions noted. - Medical Decision Making Pt with no prior history of HTN presenting with elevated BP and slurred speech, facial droop that started 1 hour prior to arrival. Facial droop has resolved, and slurring of speech is very faint. Code chapman called, [facility] no acute findings. D /w neuro, will place on obs. <Juanita Connell - Last Filed: 08/25/18 22:34> NIH Stroke Scale - Last Known Well Date/Time & Onset Date Last Known Well: 08/25/18 Time Last Known Well: 18:00 - Initial Evaluation Level of consciousness: Alert Ask patient the month and their age: Answers both correctly Ask patient to open & close eyes; make fist and let go: Obeys both correctly Best gaze (horizontal eye movement): Normal Visual field testing: No visual field loss Facial paresis (Show teeth/raise eyebrows/close eyes tight): Normal symmetrical movement Motor Function: Left Arm: Normal Motor Function: Right Arm: Normal (extends arm 90 (or 45) degrees for 10 seconds without drift Motor Function: Left Leg: Normal (extends leg 30 degrees for 5 seconds without drift) Motor Function: Right Leg: Normal (extends leg 30 degrees for 5 seconds without drift) Limb Ataxia: No ataxia Sensory(Use pinprick test arms,legs,trunk,face/side to side): Normal Best language (Describe picture, name items, read sentences): No Aphasia Dysarthria (read several words): Mild to moderate slurring of words Extinction and Inattention: No abnormality - Total Score NIH Stroke Scale Score: 1 <Juanita Connell - Last Filed: 08/25/18 22:34>
[2018-08-25 19:16] LABS: BASO % 0.9 % (0-2.0); EOS % 2.1 % (0-4.5); HEMATOCRIT 42.4 % (32.4-45.2); HEMOGLOBIN 14.8 GM/dL (10.7-15.3); LYMPH % 37.6 % (8-40); MCH 31.4 pg (25.7-33.7); MEAN CELL VOLUME 89.7 fl (80-96); MEAN PLT VOLUME 9.6 fl (7.5-11.1); MONO % 7.4 % (3.8-10.2); PLATELET COUNT 259 K/MM3 (134-434); RBC 4.73 M/mm3 (3.60-5.2); WHITE BLOOD COUNT 10.4 K/mm3 (4.0-10.0)
--- NOTE | 2018-08-25 19:23 | PDOC ---
History of Present Illness - General Chief Complaint: CVA/TIA Stated Complaint: NUMBNESS ON RIGHT SIDE ON FACE Time Seen by Provider: 08/25/18 18:55 History Source: Patient Exam Limitations: No Limitations - History of Present Illness Initial Comments: 08/25/18 20:28 57 yo F with a hx of hypothyroidism presents to the emergency department after sudden onset of left sided facial droop and slurred speech at approximately 6 pm while at a restaurant. Per the patient, she went to the bathroom and came out and felt off and her friends noticed her slurring of speech and drool with left sided facial droop. The patient denies pain. Denies head trauma, LOC, and headaches. When she arrived to the emergency department, she stated her blood pressure was quite elevated for her (SBP 189 in the department on initial presentation), with her normal in the SBP 120s. She states she has been having right incisor upper tooth pain that she believes is an abscess that has been ongoing for 2 days. It intensifies with palpation. Denies the following: fever, chills, visual changes, nausea, vomiting, chest pain, SOB, abdominal pain, dysuria, hematuria, ataxia, lightheadedness, dizziness, diarrhea, hematochezia, and leg pain/swelling. Pmhx: Hypothyroidism Shx: appendectomy 2 years ago Meds: levothyroxine Allergies: NKDA tPA Exclusion Checklist 0-3hr - Time Elapsed Date last known well: 08/25/18 Time last known well: 18:00 Elaspsed time: Day(s) and 16 Hour(s) and 32 Minutes - Thrombolytic Therapy Candidate Is the patient eligible for Thrombolytic Therapy?: No - Exclusion Criteria 0-3hr SBP greater than 185 or DBP greater than 110mmHg despite tx: No Recent IC/spinal surgery,head trauma or stroke w/in last 3mo: No Hx of previous IC hemorrhage, IC neoplasm, AVM or aneurysm: No Active internal bleeding: No Blding diathesis(low plt ct, inc PTT,INR>1.7 or use of NOAC): No Symptoms suggest subarachnoid hemorrhage: No CT demonstrates multilobar infarct(>1/3 cerebral hemiphere): No Arterial puncture at noncompressible site in previous 7 days: No Blood glucose concentration less than 50mg/dL (2.7mmol/L): No - Relative Exclusion Criteria 0-3h Life expectancy <1yr/severe co-morbid illness/[employer] on admit: No : No Patient/family refused: No Rapid improvement: Yes Stroke severity too mild: Yes Recent acute CO (w/in previous 3 months): No Seizure at onset with postictal residual neuro impairments: No Major surgery or serious trauma w/in previous 14 days: No Recent GI or hemorrhage (w/in previous 21 days): No - Ineligibility reason(s) Reasons No tPA given: See reason(s) noted above NIH Stroke Scale - Last Known Well Date/Time & Onset Date Last Known Well: 08/25/18 Time Last Known Well: 18:00 - Initial Evaluation Level of consciousness: Alert Ask patient the month and their age: Answers both correctly Ask patient to open & close eyes; make fist and let go: Obeys both correctly Best gaze (horizontal eye movement): Normal Visual field testing: No visual field loss Facial paresis (Show teeth/raise eyebrows/close eyes tight): Minor paralysis ( flattened nasolabial fold, asymmetry on smiling) (left side) Motor Function: Left Arm: Normal Motor Function: Right Arm: Normal (extends arm 90 (or 45) degrees for 10 seconds without drift Motor Function: Left Leg: Normal (extends leg 30 degrees for 5 seconds without drift) Motor Function: Right Leg: Normal (extends leg 30 degrees for 5 seconds without drift) Limb Ataxia: No ataxia Sensory(Use pinprick test arms,legs,trunk,face/side to side): Normal Best language (Describe picture, name items, read sentences): No Aphasia Dysarthria (read several words): Mild to moderate slurring of words Extinction and Inattention: No abnormality - Total Score NIH Stroke Scale Score: 2 Past History - Past Medical History Allergies/Adverse Reactions: Allergies Allergy/AdvReac Type Severity Reaction Status Date / Time No Known Allergies Allergy Verified 08/25/18 18:48 Home Medications: Ambulatory Orders Levothyroxine [Synthroid -] 150 mcg PO DAILY 05/31/17 Thyroid Disease: Yes - Surgical History Appendectomy: Yes - Immunization History Td Vaccination: Yes - Suicide/Smoking/Psychosocial Hx Smoking Status: Yes Smoking History: Former smoker Have you smoked in the past 12 months: No Number of Cigarettes Smoked Daily: 3 Information on smoking cessation initiated: No 'Breaking Loose' booklet given: 03/17/17 Hx Alcohol Use: No Drug/Substance Use Hx: No Substance Use Type: None Hx Substance Use Treatment: No Review of Systems - Review of Systems Able to Perform ROS?: Yes Is the patient limited Peruvian proficient: No Constitutional: No: Chills, Diaphoresis, Fever HEENTM: No: Blurred Vision, Recent change in vision, Ear Pain, Nose Pain, Throat Pain, Mouth Pain Respiratory: No: Cough, Shortness of Breath, SOB with Exertion, Hemoptysis Cardiac (ROS): No: Chest Pain, Lightheadedness, Palpitations, Chest Tightness ABD/GI: No: Constipated, Diarrhea, Nausea, Poor Appetite, Rectal Bleeding, Vomiting, Abdominal cramping, Tarry Stools : No: Burning, Dysuria, Hematuria, Incontinence, Urgency Musculoskeletal: No: Back Pain, Joint Pain, Neck Pain Integumentary: No: Bruising, Flushing, Lesions, Lumps, Rash Neurological: No: Headache, Numbness, Tremors, Weakness, Ataxia, Dizziness Psychiatric: No: Stressors Endocrine: No: Unexplained Weight Loss Hematologic/Lymphatic: No: Anemia *Physical Exam - Vital Signs Last Vital Signs Temp Pulse Resp BP Pulse Ox 94 H 20 189/74 H 99 08/25/18 18:48 08/25/18 18:48 08/25/18 18:48 08/25/18 18:48 - Physical Exam General Appearance: Yes: Nourished, Appropriately Dressed. No: Apparent Distress, Intoxicated HEENT: positive: EOMI, SANGITA, Normal Voice, Symmetrical, Pharynx Normal, Hearing Grossly Normal. negative: Pale Conjunctivae, Scleral Icterus (R), Scleral Icterus (L), Muffled/Hoarse voice, Pharyngeal Erythema, Tonsillar Exudate, Tonsillar Erythema, Nasal Congestion, Sinus Tenderness, Excessive drooling Neck: positive: Trachea midline. negative: Tender, Lymphadenopathy (R), Lymphadenopathy (L), Tender lateral, Tender midline Respiratory/Chest: positive: Lungs Clear, Normal Breath Sounds. negative: Chest Tender, Respiratory Distress, Accessory Muscle Use, Rales, Rhonchi, Stridor, Wheezing, Hyperresonant Cardiovascular: positive: Regular Rhythm, Regular Rate, S1, S2. negative: Systolic Murmur Gastrointestinal/Abdominal: positive: Normal Bowel Sounds, Flat, Soft. negative : Tender Lymphatic: negative: Adenopathy Musculoskeletal: positive: Normal Inspection. negative: CVA Tenderness, Vertebral Tenderness Extremity: positive: Normal Capillary Refill, Normal Inspection, Normal Range of Motion. negative: Tender Integumentary: positive: Normal Color, Dry, Warm Neurologic: positive: granite setter II-XII NML intact, Fully Oriented, Alert, Normal Mood/ Affect, Normal Response, Motor Strength 5/5, Other (mild dysarthria ). negative : Facial Droop Moderate Sedation - Procedure Monitoring Vital Signs: Procedure Monitoring Vital Signs Temperature Pulse Rate 94 H 08/25/18 18:48 Respiratory Rate 20 08/25/18 18:48 Blood Pressure 189/74 H 08/25/18 18:48 O2 Sat by Pulse Oximetry (%) 99 08/25/18 18:48 Heart Score/ECG Review - ECG Intrepretation Comment:: 08/26/18 10:35 ventricular rate: 80 bpm. MT is 148 ms, QRS is 92 ms, and QTc is 438 ms. Normal sinus rhythm without ST elevations or depressions. ED Treatment Course - LABORATORY CBC & Chemistry Diagram: 08/25/18 19:04 08/25/18 19:04 - ADDITIONAL ORDERS Additional order review: 08/25/18 19:04 RBC 4.73 MCV 89.7 MCHC 35.0 RDW 13.0 MPV 9.6 Neutrophils % 52.0 Lymphocytes % 37.6 Monocytes % 7.4 Eosinophils % 2.1 Basophils % 0.9 Medical Decision Making - Medical Decision Making 08/25/18 20:40 57 yo F with a hx of hypothyroidism presents to the emergency department after sudden onset of left sided facial droop and slurred speech at approximately 6 pm while at a restaurant. Initial vitals: Initial Vital Signs Pulse Resp BP Pulse Ox 94 H 20 189/74 H 99 08/25/18 18:48 08/25/18 18:48 08/25/18 18:48 08/25/18 18:48 work up: cva vs tia. unlikely to be seizure. head CT was negative for intracranial bleed. Laboratory Tests 08/25/18 08/25/18 08/25/18 19:04 19:04 19:04 WBC 10.4 H RBC 4.73 Hgb 14.8 Hct 42.4 MCV 89.7 MCH 31.4 MCHC 35.0 RDW 13.0 Plt Count 259 D MPV 9.6 Absolute Neuts (auto) 5.4 Neutrophils % 52.0 Lymphocytes % 37.6 Monocytes % 7.4 Eosinophils % 2.1 Basophils % 0.9 Nucleated RBC % 0 PT with INR 11.90 INR 1.01 Sodium 142 Potassium 4.0 Chloride 108 H Carbon Dioxide 24 Anion Gap 10 BUN 15 Creatinine 0.9 Creat Clearance w eGFR > 60 Random Glucose 124 H Calcium 8.8 Total Bilirubin 0.2 AST 23 ALT 36 Alkaline Phosphatase 86 Creatine Kinase 31 Troponin I < 0.02 Total Protein 7.2 Albumin 3.6 Triglycerides 336 H Cholesterol 260 H Total LDL Cholesterol 165 H HDL Cholesterol 55 Blood Type Antibody Screen 08/25/18 19:04 WBC RBC Hgb Hct MCV MCH MCHC RDW Plt Count MPV Absolute Neuts (auto) Neutrophils % Lymphocytes % Monocytes % Eosinophils % Basophils % Nucleated RBC % PT with INR INR Sodium Potassium Chloride Carbon Dioxide Anion Gap BUN Creatinine Creat Clearance w eGFR Random Glucose Calcium Total Bilirubin AST ALT Alkaline Phosphatase Creatine Kinase Troponin I Total Protein Albumin Triglycerides Cholesterol Total LDL Cholesterol HDL Cholesterol Blood Type A POSITIVE Antibody Screen Negative Cholesterol was elevated, triglycerides were elevated. Spoke to Dr. Sheikh who agrees with obs tele admission given her retained slurred speech and no tpa. patient did not have pain on reassessment and agreed to the admission. Dispo: Admit *DC/Admit/Observation/Transfer Diagnosis at time of Disposition: Cerebrovascular accident (CVA) - Referrals - Patient Instructions - Post Discharge Activity
[2018-08-25] MEDS: SODIUM CHLORIDE 1,000 ML IV SCH (19:37)
[2018-08-25 19:47] LABS: INR 1.01 (0.83-1.09); PROTHROMBIN TIME (PATIENT) 11.9 SEC (9.7-13.0)
[2018-08-25 19:58] LABS: ALBUMIN 3.6 g/dl (3.4-5.0); ALK PHOS 86 U/L (45-117); ANION GAP 10 MMOL/L (8-16); BILIRUBIN,TOTAL 0.2 mg/dL (0.2-1); BLOOD UREA NITROGEN 15 mg/dL (7-18); CALCIUM 8.8 mg/dL (8.5-10.1); CHLORIDE 108 mmol/L (98-107); CHOLESTEROL 260 mg/dL (50-200); CO2 24 mmol/L (21-32); CREATININE 0.9 mg/dL (0.55-1.3); GLUCOSE,RANDOM 124 mg/dL (74-106); HDL CHOLESTEROL 55 mg/dL (40-60); SGOT/AST 23 U/L (15-37); SGPT/ALT 36 U/L (13-61); SODIUM 142 mmol/L (136-145); TOT PROT 7.2 g/dl (6.4-8.2); TRIGLYCERIDES 336 mg/dL (0-150)
--- NOTE | 2018-08-25 20:52 | CON.NEURO ---
Consult Consult Specialty:: Kori Referred by:: ER - History of Present Illness History of Present Illness: 57 years old woamnw ith HX CAd OA Hypothyroidism Patient was at [facility] she had sudden onset of slurred speech At [facility] returant was 17:45 Patient came to [facility] Er Stroke protocol intiated NIHSS 1 No TPA I saw [facility] patient in [facility] ER 21:00 No CP BP better No headache e Speech is back to normal - History Source History Provided By: Patient Limitations to Obtaining History: No Limitations - Past Medical History Endocrine: Yes: Hypothyroidism - Alcohol/Substance Use Hx Alcohol Use: No - Smoking History Smoking history: Former smoker Have you smoked in the past 12 months: No Aproximately how many cigarettes per day: 3 Home Medications - Allergies Allergies/Adverse Reactions: Allergies Allergy/AdvReac Type Severity Reaction Status Date / Time No Known Allergies Allergy Verified 08/25/18 18:48 - Home Medications Home Medications: Ambulatory Orders Levothyroxine [Synthroid -] 150 mcg PO DAILY 05/31/17 Family Disease History - Family Disease History Family History: Denies (stroke) Review of Systems - Review of Systems Constitutional: reports: No Symptoms Eyes: reports: No Symptoms Neurological: reports: Headache, Incoordination Physical Exam-Neuro Vital Signs: Vital Signs Temperature 97.6 F 08/25/18 19:15 Pulse Rate 88 08/25/18 19:15 Respiratory Rate 18 08/25/18 19:15 Blood Pressure 102/57 L 08/25/18 19:15 O2 Sat by Pulse Oximetry (%) 96 08/25/18 19:15 Constitutional: Yes: Well Nourished Neck: Yes: WNL Labs: CBC, BMP 08/25/18 19:04 08/25/18 19:04 INR, PTT INR 1.01 (0.83-1.09) 08/25/18 19:04 - Neuro Exam Level Of Consciousness: Yes: Oriented to Person, Oriented to Place, Oriented to Time Eyes: Yes: PERRLA Speech: WNL Dominant Hand: Right Cranial Nerves II-XII Intact: Yes Gag: Present DTR's: 1+ Left Bicep, 1+ Right Bicep, 1+ Left Brachioradialis, 1+ Right Brachioradialis Response to light touch: Normal Response to pain prick: Normal Response to temperature: Normal Motor Strength: 3/5: Left Arm, Right Arm, Left Leg, Right Leg Gait: Deferred Imaging - Results Cat Scan: Image Reviewed Problem List - Problems (1) TIA (transient ischemic attack) Assessment/Plan: No real risk factor back to [place] 1. Holter 2. Baby asa 3. Lipid profile 4. Speech assessment 5. mRI valentino no alfredo 6. Echo 7. Homocysteine level many thanks Code(s): G45.9 - TRANSIENT CEREBRAL ISCHEMIC ATTACK, UNSPECIFIED
--- NOTE | 2018-08-25 21:41 | PN ---
Teaching Attending Note Name of Resident: Bronwyn Rodriguez ATTENDING PHYSICIAN STATEMENT I saw and evaluated the patient. I reviewed the resident's note and discussed the case with the resident. I agree with the resident's findings and plan as documented. CC: Slurred speech at dinner SUBJECTIVE: Seen and examined; please refer to the resident note for additional documentation. Briefly, patient was near the hospital at dinner when she experienced a sudden slurring of her speech. She never had this sort of symptom before, nothing made it better or worse, she doens't see neurology or have any FH of any notable neurologic issues. Due to this she was promptly brought to the ER. NIHSS 1; stroke protocol initiated. She did have a slight headache which has since resolved without any red flag sx. Her speech has since returned to normal. Time of onset of sx was 1745. Neurology did see in the ER; recommendations per their note. Current NIHSS 0. Placing on observation on telemetry on the medicine service with neurology consultation. 10 sys ROS done and negative aside from HPI PMH and PSH reviewed FH asked and noncontributory Socially she is a former smoker and doesn't have any h/o EtOH or drug abuse Medication list reviewed and reconciliation pending OBJECTIVE: VS, labs, imaging reviewed Labs show WBC 10 and the rest of CBC unremarkable; glucose 120s but rest of BMP unremarkable. TG 336, Tchol 260, LDL 165, Coags unremarkable CT head reviewed; no intracranial pathology MRI, echo, carotid dopplers pending EKG reviewed; telemetry reviewed ASSESSMENT AND PLAN: Patient presents for slurred speech; placing on observation and working up for TIA 1) Acute Slurred Speech, r/o TIA -NIHSS 1 on presentation; sx resolving without any other FNDs. NIHSS is now 0 and she has no complaints. No tPA given. -Neurology saw; defer ultimate management to them. Please refer to their consultation for their full assessment -MRI, Echo, Carotid dopplers pending -A1c pending. Lipids elevated and will be addresed separately. TSH wnl -PT eval, swallow study pending -Neuro checks, seizure precautions. 2) Hyperlipidemia -Obtain a1c, monitor BP, fully risk stratify and calculate ASCVD risk. In the interem will place on atorva 40 and go from there. 3) Hx Hypothyroid -TSH wnl; US from may shows a stable multinodular goiter unchanged since 2016. Followup outpatient. 4) Hx Vitamin D Deficiency -Old low 25-hydroxy level noted. Followup outpatient; needs to ensure she gets osteoporosis screening, etc. 5) CAD hx? 6) OA?
[2018-08-25] MEDS ORDERED: ATORVASTATIN CA 20 MG TABLET (FP) PO SCH (22:00)
[2018-08-25] MEDS ORDERED: ATORVASTATIN CA 10 MG TABLET (FP) ONE (22:08)
--- NOTE | 2018-08-25 23:33 | HP ---
CHIEF COMPLAINT: slurred speech PCP: HISTORY OF PRESENT ILLNESS: 57 y/o F with PMH hypothyroidism who presents to the ED c/o slurred speech, L facial droop that started at 6pm this evening. As per pt, she was out to dinner with her friends having cocktails at [employer] when one of her friends noticed that she had a L facial droop. During this time, she endorsed slurred speech and states that she had not had much to drink. Pt came to the ED for further evaluation d/t her concern. States that the only deviation in her normal activity was that she took a zyrtec last night for a sinus headache, since her "sinuses felt clogged." Pt also c/o pain in her lower extremities. She is not sure if this is d/t arthritis. Denies current RIVERO, fever, chills, other neurological deficits, or changes in urinary or bowel function. 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 Smokin pack over 3 days cigarettes. for 10-15 yrs . tried to quit in past unsuccessfully Alcohol: socially Drugs: denies Family History: father- DM, stent. Allergies No Known Allergies Allergy (Verified 08/25/18 18:48) HOME MEDICATIONS: Home Medications Medication Instructions Recorded Levothyroxine [Synthroid -] 150 mcg PO DAILY 05/31/17 REVIEW OF SYSTEMS CONSTITUTIONAL: Absent: fever, chills, diaphoresis, generalized weakness, malaise, loss of appetite, weight change HEENT: Absent: rhinorrhea, nasal congestion, throat pain, throat swelling, difficulty swallowing, mouth swelling, ear pain, eye pain, visual changes CARDIOVASCULAR: Absent: chest pain, syncope, palpitations, irregular heart rate, lightheadedness , peripheral edema RESPIRATORY: Absent: cough, shortness of breath, dyspnea with exertion, orthopnea, wheezing, stridor, hemoptysis GASTROINTESTINAL: Absent: abdominal pain, abdominal distension, nausea, vomiting, diarrhea, constipation, melena, hematochezia GENITOURINARY: Absent: dysuria, frequency, urgency, hesitancy, hematuria, flank pain, genital pain MUSCULOSKELETAL: Absent: myalgia, arthralgia, joint swelling, back pain, neck pain SKIN: Absent: rash, itching, pallor HEMATOLOGIC/IMMUNOLOGIC: Absent: easy bleeding, easy bruising, lymphadenopathy, frequent infections ENDOCRINE: Absent: unexplained weight gain, unexplained weight loss, heat intolerance, cold intolerance NEUROLOGIC: +L facial droop Absent: headache, focal weakness or paresthesias, dizziness, unsteady gait, seizure, mental status changes, bladder or bowel incontinence PSYCHIATRIC: Absent: anxiety, depression, suicidal or homicidal ideation, hallucinations. PHYSICAL EXAMINATION Vital Signs - 24 hr 08/25/18 08/25/18 18:48 19:15 Temperature 97.6 F Pulse Rate 94 H Pulse Rate [ 88 Left Radial] Respiratory 20 18 Rate Blood Pressure 189/74 H Blood Pressure 102/57 L [Left Arm] O2 Sat by Pulse 99 96 Oximetry (%) GENERAL: Very pleasant. Resting in bed. Awake, alert, and fully oriented, in no acute distress. HEAD: +L facial droop at mouth EYES: Pupils equal, round and reactive to light, extraocular movements intact, sclera anicteric, conjunctiva clear EARS, NOSE, THROAT: Ears normal, nares patent, oropharynx clear without exudates. NECK: Normal range of motion, supple LUNGS: Breath sounds equal, clear to auscultation bilaterally. No wheezes, and no crackles. No accessory muscle use. HEART: Regular rate and rhythm, normal S1 and S2 without murmur, rub or gallop. ABDOMEN: Soft, obese, nontender, not distended, normoactive bowel sounds LOWER EXTREMITIES: 2+ pt pulses, warm, well-perfused. No calf tenderness. No peripheral edema. NEUROLOGICAL: Cranial nerves II-XII intact. +L facial droop. sensation intact. 3/5 motor strength upper extremities. 4/5 motor strength LE but limited to pain PSYCHIATRIC: Cooperative. Good eye contact. Appropriate mood and affect. SKIN: Warm, dry. Laboratory Results - last 24 hr 08/25/18 08/25/18 08/25/18 19:04 19:04 19:04 WBC 10.4 H RBC 4.73 Hgb 14.8 Hct 42.4 MCV 89.7 MCH 31.4 MCHC 35.0 RDW 13.0 Plt Count 259 D MPV 9.6 Absolute Neuts (auto) 5.4 Neutrophils % 52.0 Lymphocytes % 37.6 Monocytes % 7.4 Eosinophils % 2.1 Basophils % 0.9 Nucleated RBC % 0 PT with INR 11.90 INR 1.01 Sodium 142 Potassium 4.0 Chloride 108 H Carbon Dioxide 24 Anion Gap 10 BUN 15 Creatinine 0.9 Creat Clearance w eGFR > 60 Random Glucose 124 H Calcium 8.8 Total Bilirubin 0.2 AST 23 ALT 36 Alkaline Phosphatase 86 Creatine Kinase 31 Troponin I < 0.02 Total Protein 7.2 Albumin 3.6 Triglycerides 336 H Cholesterol 260 H Total LDL Cholesterol 165 H HDL Cholesterol 55 Blood Type Antibody Screen Head CT: no CT evidence of acute intracranial pathology ASSESSMENT/PLAN: 57 y/o F with PMH hypothyroidism who presents to the ED c/o slurred speech, L facial droop that started at 6pm this evening. #R/o TIA -sx began at 6pm - facial droop, slurred speech. still with sx. decreased motor strength UE -head CT (-) for changes -f/u brain MRI, ECHO, carotids -f/u homocysteine -PT -c/w baby asa, lipitor 20 qHS -holter monitoring -neurochecks q1-2hr #hypothyroidism, hx TPO-abs. multinodular goiter -c/w synthroid -cont f/u with Dr. paulson #F/E/N gentle IVF, encourage PO intake continue to follow lytes passed bedside swallow; cholesterol/heart healthy diet #PPX early ambulation #dispo stroke obs Visit type - Emergency Visit Emergency Visit: Yes ED Registration Date: 08/25/18 Care time: The patient presented to the Emergency Department on the above date and was hospitalized for further evaluation of their emergent condition. - New Patient This patient is new to me today: Yes Date on this admission: 08/26/18 - Critical Care Critical Care patient: No
[2018-08-26] MEDS: ASPIRIN 325 MG TABLET PO SCH (09:38)
--- NOTE | 2018-08-26 13:27 | EKG ---
Test Reason : Blood Pressure : / mmHG Vent. Rate : 080 BPM Atrial Rate : 080 BPM P-R Int : 148 ms QRS Dur : 092 ms QT Int : 380 ms P-R-T Axes : 079 080 064 degrees QTc Int : 438 ms POOR DATA QUALITY, INTERPRETATION MAY BE ADVERSELY AFFECTED NORMAL SINUS RHYTHM POSSIBLE LEFT ATRIAL ENLARGEMENT LOW VOLTAGE QRS BORDERLINE ECG WHEN COMPARED WITH ECG OF 06-FEB-2014 07:10, NO SIGNIFICANT CHANGE WAS FOUND Confirmed by PORTIA PAEZ MD ([id number]) on 08/26/2018 1:27:06 PM Referred By: Confirmed By:PORTIA PAEZ MD
--- NOTE | 2018-08-26 15:11 | PN ---
Teaching Attending Note Name of Resident: Bronwyn Rodriguez ATTENDING PHYSICIAN STATEMENT I saw and evaluated the patient. I reviewed the resident's note and discussed the case with the resident. I agree with the resident's findings and plan as documented. Evaluated the patient this morning She is is no distress at this time. She is a 57 Y/O active smoker, HLD F with no significant PMH, P/W an episode of sudden onset slurred speech and l facial droop with no other focal neurological deficit, lasting for 30 minutes, no trigger, no aggravating, no alleviating factor. states that this is the first time this is happening to her.She denies any cardiopulmonary complaints prior to the episode. she states that she had taken zertic the night before and 1 drink 18 hours after tht medication.She is not on ASA, not on statin at home. She was evaluated in the ED as stoke code, HCT no acute hemorrhagic stroke, as her symptoms had resolved no intervention was done. At this time she has no complaints and no focal neurologic deficits. had been evaluated by neurology, recived ASA, statin, no plavix Last Vital Signs Temp Pulse Resp BP Pulse Ox 98 F 69 20 109/64 96 08/26/18 09:00 08/26/18 09:00 08/26/18 09:00 08/26/18 09:00 08/25/18 22:26 very pleasant F in no distress A&OX3, no focal neurologic deficit strengh 5/5 [employer]ING [employer] intact S1S2 CTAB Abd:BS+ NT/ND ext: No edema LABS: CBCD WBC 10.4 K/mm3 (4.0-10.0) H 08/25/18 19:04 RBC 4.73 M/mm3 (3.60-5.2) 08/25/18 19:04 Hgb 14.8 GM/dL (10.7-15.3) 08/25/18 19:04 Hct 42.4 % (32.4-45.2) 08/25/18 19:04 MCV 89.7 fl (80-96) 08/25/18 19:04 MCHC 35.0 g/dl (32.0-36.0) 08/25/18 19:04 RDW 13.0 % (11.6-15.6) 08/25/18 19:04 Plt Count 259 K/MM3 (134-434) D 08/25/18 19:04 MPV 9.6 fl (7.5-11.1) 08/25/18 19:04 CMP Sodium 142 mmol/L (136-145) 08/25/18 19:04 Potassium 4.0 mmol/L (3.5-5.1) 08/25/18 19:04 Chloride 108 mmol/L (98-107) H 08/25/18 19:04 Carbon Dioxide 24 mmol/L (21-32) 08/25/18 19:04 Anion Gap 10 MMOL/L (8-16) 08/25/18 19:04 BUN 15 mg/dL (7-18) 08/25/18 19:04 Creatinine 0.9 mg/dL (0.55-1.3) 08/25/18 19:04 Creat Clearance w eGFR > 60 (>60) 08/25/18 19:04 Random Glucose 124 mg/dL (74-106) H 08/25/18 19:04 Calcium 8.8 mg/dL (8.5-10.1) 08/25/18 19:04 Total Bilirubin 0.2 mg/dL (0.2-1) 08/25/18 19:04 AST 23 U/L (15-37) 08/25/18 19:04 ALT 36 U/L (13-61) 08/25/18 19:04 Alkaline Phosphatase 86 U/L (45-117) 08/25/18 19:04 Total Protein 7.2 g/dl (6.4-8.2) 08/25/18 19:04 Albumin 3.6 g/dl (3.4-5.0) 08/25/18 19:04 CARDIAC ENZYMES Creatine Kinase 31 IU/L (26-192) 08/25/18 19:04 Troponin I < 0.02 ng/ml (0.00-0.05) 08/25/18 19:04 Carotid US done today: with mod 60-70% occlusion at the site of the left carotid bifurcation a&P: TIA: started on ASA, plavix, atorvastatin has carotid stenosis on the left side, will ask vascular for need for any intervention in the setting of TIA( less likely to be indicated) pending holter and TTE studies neuro recs appreciated will keep the BP elevated for 2 weeks Nictone abuse: willing to quit, nicotine patch placed HLD: send lipid panel and will start on atorvastatin Diet:cardiac Dispo: home after further evaluation completed. DVT PPX: scd and lovenox
--- NOTE | 2018-08-26 15:56 | PN ---
Progress Note, Physician History of Present Illness: events noted and chart reviewed Patient is on the telemetry No episodes of cardiac arrhythmia No episodes of slurred speech Tolerating the aspirin on the Lipitor very well Carotid Doppler was noted with stenosis in the left carotid at 60-70%. - Current Medication List Current Medications: Active Medications Aspirin (Asa -) 81 mg PO DAILY [facility] Last Admin: 08/26/18 09:38 Dose: 81 mg Atorvastatin Calcium (Lipitor -) 80 mg PO HS [facility] Clopidogrel Bisulfate (Plavix -) 75 mg PO DAILY [facility] Enoxaparin Sodium (Lovenox -) 40 mg SQ DAILY [facility] Sodium Chloride (Normal Saline -) 1,000 mls @ 42 mls/hr IV ASDIR [facility] Last Admin: 08/25/18 19:37 Dose: 42 mls/hr Nicotine (Nicoderm Patch -) 14 mg TD DAILY [facility] - Objective Vital Signs: Vital Signs Temperature 98.7 F 08/26/18 14:30 Pulse Rate 69 08/26/18 14:30 Respiratory Rate 20 08/26/18 14:30 Blood Pressure 98/61 08/26/18 14:30 O2 Sat by Pulse Oximetry (%) 96 08/25/18 22:26 Constitutional: Yes: Well Nourished Eyes: Yes: WNL HENT: Yes: WNL Neurological: Yes: Alert, Oriented ...Motor Strength: WNL Labs: CBC, BMP 08/25/18 19:04 08/25/18 19:04 INR, PTT INR 1.01 (0.83-1.09) 08/25/18 19:04 Problem List - Problems (1) TIA (transient ischemic attack) Assessment/Plan: questionable source from the left carotid stenosis with slurred speech Hypercholesterolemia 1. MRI/MRA of the brain 2. Tight blood pressure control. 3. Continue Lipitor. 4. Continue the baby aspirin. 5. Healthy lifestyle We'll make a decision regarding the carotid Doppler after the MRA Code(s): G45.9 - TRANSIENT CEREBRAL ISCHEMIC ATTACK, UNSPECIFIED
[2018-08-26] MEDS: SODIUM CHLORIDE 1,000 ML IV SCH (19:11)
[2018-08-26] MEDS: NICOTINE 14 MG/24 HOURS TOPICAL PATCH TD SCH (19:31)
[2018-08-26] MEDS: ENOXAPARIN NA (PORCINE) 40 MG/0.4 ML DISP.SYRIN SQ SCH (21:33)
[2018-08-26] MEDS ORDERED: ATORVASTATIN CA 80 MG TABLET (FP) PO SCH (22:00)
[2018-08-27 07:45] LABS: CHOLESTEROL 213 mg/dL (50-200); TRIGLYCERIDES 110 mg/dL (0-150)
[2018-08-27 09:10] VITALS: BP 100/46; PULSE 72; TEMP 97.8
[2018-08-27 09:22] LABS: HDL CHOLESTEROL 52 mg/dL (40-60)
--- NOTE | 2018-08-27 09:35 | DS ---
Physical Exam: SUBJECTIVE: Patient seen and examined. she has no complaints and want to go home and F/u with neurology OBJECTIVE: Vital Signs Period Temp Pulse Resp BP Sys/Hong Pulse Ox Last 24 Hr 97.8 F-98.7 F 69-80 17-29 93-118/46-77 97 PHYSICAL EXAM GENERAL: The patient is awake, alert, and fully oriented, in no acute distress. HEAD: Normal with no signs of trauma. EYES: PERRL, extraocular movements intact, sclera anicteric, conjunctiva clear. ENT: Ears normal, nares patent, oropharynx clear without exudates, moist mucous membranes. NECK: Trachea midline, full range of motion, supple. LUNGS: Breath sounds equal, clear to auscultation bilaterally, no wheezes, no crackles, no accessory muscle use. HEART: Regular rate and rhythm, S1, S2 without murmur, rub or gallop. ABDOMEN: Soft, nontender, nondistended, normoactive bowel sounds, no guarding, no rebound, no hepatosplenomegaly, no masses. EXTREMITIES: 2+ pulses, warm, well-perfused, no edema. NEUROLOGICAL: Cranial nerves II through XII grossly intact. Normal speech, gait not observed. PSYCH: Normal mood, normal affect. SKIN: Warm, dry, normal turgor, no rashes or lesions noted. LABS Laboratory Results - last 24 hr 08/26/18 08/26/18 08/27/18 11:50 11:50 06:00 Triglycerides 110 Cholesterol 213 H Total LDL Cholesterol 134 H HDL Cholesterol 52 Vitamin B12 520 Blood Type A [facility]: Date of Admission:08/25/18 Date of Discharge: 08/27/18 She is a 57 Y/O active smoker, HLD F with no significant PMH, P/W an episode of sudden onset slurred speech and l facial droop with no other focal neurological deficit, lasting for 30 minutes, no trigger, no aggravating, no alleviating factor. states that this is the first time this is happening to her.She denies any cardiopulmonary complaints prior to the episode. she states that she had taken zertic the night before and 1 drink 18 hours after tht medication.She is not on ASA, not on statin at home. She was evaluated in the ED as stoke code, HCT no acute hemorrhagic stroke, as her symptoms had resolved no intervention was done. At this time she has no complaints and no focal neurologic deficits. had been evaluated by neurology, received ASA, statin, no plavix. She was found to have non significant 60% at L carotid bifurcation with need for F/U in 6 months. Per Neurology attending no need for plavix at this time No tele events for 36 hours. She will F/U with neurology as out patient . New medications: ASA 781 mg po daily atorvastain 80 mg po QHS per neuro npo need for plavix 75 mg at this time nicotine patch Minutes to complete discharge: 45 Discharge Summary Reason For Visit: CVA Current Active Problems TIA (transient ischemic attack) (Acute) - Instructions Referrals: Gricelda Meraz MD [Primary Care Provider] - - Home Medications Comprehensive Discharge Medication List: Ambulatory Orders Levothyroxine [Synthroid -] 150 mcg PO DAILY 05/31/17
[2018-08-27] MEDS ORDERED: CLOPIDOGREL BISULFATE 75 MG TABLET (FP) PO SCH (10:00)
[2018-08-27] MEDS: ASPIRIN 325 MG TABLET PO SCH (10:19)
[2018-08-27] MEDS: ENOXAPARIN NA (PORCINE) 40 MG/0.4 ML DISP.SYRIN SQ SCH (10:19)
[2018-08-27] MEDS: NICOTINE 14 MG/24 HOURS TOPICAL PATCH TD SCH (10:19)
--- NOTE | 2018-08-27 13:15 | PN ---
Progress Note, Physician History of Present Illness: events noted in chart reviewed Overnight no neurological event no speech alteration no facial drooping no visual symptoms. Carotid Doppler was noted yesterday with about 60% stenosis I ordered an MR a results are still pending MRI of the brain is negative patient will need to see a vascular surgeon as an outpatient for questionable stent. - Current Medication List Current Medications: Active Medications Aspirin (Asa -) 81 mg PO DAILY [facility] Last Admin: 08/27/18 10:19 Dose: 81 mg Atorvastatin Calcium (Lipitor -) 80 mg PO HS [facility] Last Admin: 08/26/18 21:33 Dose: 80 mg Clopidogrel Bisulfate (Plavix -) 75 mg PO DAILY [facility] Last Admin: 08/27/18 10:19 Dose: Not Given Enoxaparin Sodium (Lovenox -) 40 mg SQ DAILY [facility] Last Admin: 08/27/18 10:19 Dose: 40 mg Sodium Chloride (Normal Saline -) 1,000 mls @ 42 mls/hr IV ASDIR [facility] Last Admin: 08/26/18 19:11 Dose: Not Given Nicotine (Nicoderm Patch -) 14 mg TD DAILY [facility] Last Admin: 08/27/18 10:19 Dose: 14 mg - Objective Vital Signs: Vital Signs Temperature 97.8 F 08/27/18 09:03 Pulse Rate 72 08/27/18 09:03 Respiratory Rate 20 08/27/18 09:03 Blood Pressure 100/46 L 08/27/18 09:03 O2 Sat by Pulse Oximetry (%) 97 08/27/18 09:03 Constitutional: Yes: Well Nourished Eyes: Yes: WNL Neurological: Yes: Alert, Oriented, Babinski negative ...Motor Strength: WNL Labs: CBC, BMP 08/25/18 19:04 08/25/18 19:04 INR, PTT INR 1.01 (0.83-1.09) 08/25/18 19:04 Problem List - Problems (1) TIA (transient ischemic attack) Assessment/Plan: transient ischemic attack left carotid source Carotid stenosis symptomatic At a lengthy conversation with the patient regarding the healthy lifestyle patient is back to smoking she promised that she will quit smoking. 1. Healthy lifestyle. 2. Weight loss. 3. Lipitor 40 mg once daily. 4. Baby aspirin. 5. We will coordinate with vascular surgery as an outpatient for potential stent vision does not need to stay in the hospital for that. Code(s): G45.9 - TRANSIENT CEREBRAL ISCHEMIC ATTACK, UNSPECIFIED
--- NOTE | 2018-08-28 12:10 | HOL ---
Hook-up date: 2018-08-27 09:18:00 Duration: 24:00:00 Test Indications: STROKE Medications: [id number] QRS complexes 1 Ventricular ectopics which represent <1 % of total QRS comp. 15 Supraventricular ectopics which represent <1 % of total QRS comp. * Paced QRS complexs which represent % of total QRS comp. * % of Time Classified as Noise VENTRICULAR ECTOPY 1 Isolated 0 Bigeminal Cycles 0 Couplets 0 Runs 0 Beats in Runs * Beats LONGEST at * BPM at :: -- * Beats FASTEST at * BPM at :: -- SUPRAVENTRICULAR ECTOPY 13 Isolated 1 Couplets 0 Runs 0 Beats in Runs * Beats LONGEST at * BPM at :: -- * Beats FASTEST at * BPM at :: -- HEART RATES 53 MIN at 03:03:44 2018-08-28 72 AVG 126 MAX at 13:55:22 2018-08-27 LONGEST RR 1.472 secs at 23:35:22 2018-08-27 SCANNED BY LISA BARTON ON 08/28/18 1. BASELINE RHYTHM IS SINUS RHYTHM WITH AVERAGE HR OF 72 BPM. RATES VARIED FROM 53 BPM TO 126 BPM. 2. RARE PVC 3. RARE ATRIAL ECTOPIES INCLUDING 13 APCS AND 1 ATRIAL COUPLET 4. NO SIGNIFICANT ST-T VARIATIONS 5. DIARY WAS NOT SUBMITTED Confirmed by MEAGAN TOM, СЕРГЕЙ ([id number]) on 08/28/2018 12:09:44 PM Referred By: JEREMY MEDINA DR Overread By: СЕРГЕЙ RHODES MD
== END 2018-08-27 14:00 | disposition home or self-care (01) ==
LOC: JER 18:41 → JERBED 22:26 → J4W 22:58
PROVIDERS: ADMIT Internal Medicine; ATTEND Internal Medicine
PROC: 3E013GC Introduction of Other Therapeutic Substance into Subcutaneous Tissue, Percutaneous Approach (ICD-10-PCS; principal; 2018-08-25)
DX: G45.9 Transient cerebral ischemic attack, unspecified (principal); E03.9 Hypothyroidism, unspecified; I25.10 Atherosclerotic heart disease of native coronary artery without angina pectoris; M19.90 Unspecified osteoarthritis, unspecified site; E78.5 Hyperlipidemia, unspecified; R47.81 Slurred speech
CPT/HCPCS: 36415; 70450-TC; 70547-TC; 70551-TC; 80053; 80061; 82465; 82550; 82607; 83036; 83090; 83718; 83721; 84478; 84484; 85025; 85610; 85651; 86038; 86850; 86900; 86901; 93005; 93010; 93225; 93226; 93880-TC; 99285-25; G0378; J7030

== ENCOUNTER 2022-08-26 14:31 | Emergency (ER) | payer BC, OTHER ==
[2022-08-26 14:38] VITALS: BP 116/69; PULSE 64; RESP 19; TEMP 98.6; BMI 25.8
[2022-08-26] MEDS ORDERED: IBUPROFEN 600 MG TABLET (FP) PO ONE (14:48)
== END 2022-08-26 16:05 | disposition home or self-care (01) ==
LOC: JERFT 14:31
DX: J02.9 Acute pharyngitis, unspecified (principal)
CPT/HCPCS: 0241U-QW; 87651; 99283-25

== ENCOUNTER 2023-02-15 04:45 | Inpatient (IN) | payer BC, OTHER ==
[2023-02-15] MEDS ORDERED: ALBUTEROL SO4 2.5/IPRATROPIUM 0.5 INH SOL 3 ML VIAL.NEB. NEB ONE ×2 (05:06→05:25)
[2023-02-15] MEDS ORDERED: SODIUM CHLORIDE 0.9% 500 ML INFUS.BAG IV ONE (05:25)
[2023-02-15] MEDS ORDERED: CEFTRIAXONE 1 GM in DEXTROSE 5%-WATER - 100 ML IVPB ONE (05:36)
[2023-02-15] MEDS ORDERED: AZITHROMYCIN IVPB 500 MG in DEXTROSE 5%-WATER - 250 ML IVPB ONE (05:36)
[2023-02-15] MEDS ORDERED: ACETAMINOPHEN 1000 MG/100 ML BAG IVPB ONE (05:41)
[2023-02-15] MEDS ORDERED: AZITHROMYCIN IVPB 500 MG/250 ML BAG IVPB ONE (05:44)
[2023-02-15] MEDS ORDERED: CEFTRIAXONE 1 GM/50 ML BAG ONE (05:44)
[2023-02-15] MEDS ORDERED: ACETAMINOPHEN INJECTION 100 ML IVPB ONE (06:13)
[2023-02-15 06:29] LABS: VENOUS BASE EXCESS -0.9 mmol/L (-2-2); VENOUS PCO2 36.1 mmHg (38-52); VENOUS PH 7.422 (7.310-7.410)
[2023-02-15 06:33] LABS: BASO % 0.3 % (0-2.0); EOS % 0.6 % (0-4.5); HEMATOCRIT 40.5 % (32.4-45.2); HEMOGLOBIN 13.5 GM/dL (10.7-15.3); LYMPH % 18.2 % (8-40); MCH 29.7 pg (25.7-33.7); MCHC 33.3 g/dl (32.0-36.0); MEAN CELL VOLUME 89.1 fl (80-96); MEAN PLT VOLUME 10.9 fl (7.5-11.1); MONO % 10.6 % (3.8-10.2); NEUT % 70.3 % (42.8-82.8); PLATELET COUNT 280 10^3/uL (134-434); RBC 4.55 M/mm3 (3.60-5.2); RDW 13.2 % (11.6-15.6); WHITE BLOOD COUNT 11.1 K/mm3 (4.0-10.0)
[2023-02-15 06:44] LABS: INR 1.1 (0.83-1.09); PROTHROMBIN TIME (PATIENT) 12.8 SEC (9.7-13.0)
[2023-02-15 06:47] LABS: ACTIVATED PTT 24.7 SECONDS (25.2-36.5)
[2023-02-15 06:49] LABS: CALCIUM 8.7 mg/dL (8.5-10.1)
[2023-02-15 06:50] LABS: ALBUMIN 3.3 g/dl (3.4-5.0); BLOOD UREA NITROGEN 14.9 mg/dL (7-18); MAGNESIUM 1.9 mg/dL (1.8-2.4)
[2023-02-15 06:53] LABS: CREATININE 0.8 mg/dL (0.55-1.3)
[2023-02-15 06:54] LABS: BILIRUBIN,TOTAL 0.4 mg/dL (0.2-1); TOT PROT 7.2 g/dl (6.4-8.2)
[2023-02-15] MEDS: ALBUTEROL SO4 0.083% IH SOL 2.5 MG/3 ML VIAL.NEB. NEB SCH ×3 (07:24→08:00)
[2023-02-15 08:10] LABS: EPI CELLS >36 /uL (0-25.1); HYALINE CASTS 3 /uL (0-3.1); PH,URINE 5.5 (5.0-8.0); URINE APPEARANCE CLEAR; URINE BACTERIA 5647 /uL (0-1359); URINE BILIRUBIN NEGATIVE (NEGATIVE); URINE COLOR DK YELLOW; URINE GLUCOSE (UA) NEGATIVE (NEGATIVE); URINE KETONE 1+ (NEGATIVE); URINE LEUK ESTERASE TRACE (NEGATIVE); URINE NITRITE POSITIVE (NEGATIVE); URINE PROTEIN 1+ (NEGATIVE); URINE WBC 80 /uL (0-25.8)
[2023-02-15] MEDS ORDERED: ACETAMINOPHEN 325 MG TABLET (FP) PO PRN (08:26)
[2023-02-15 08:43] LABS: URINE RBC 21 /uL (0-23.9)
[2023-02-15] MEDS: PANTOPRAZOLE 40 MG TABLET PO SCH (09:56)
[2023-02-15] MEDS: ENOXAPARIN NA (PORCINE) 40 MG/0.4 ML DISP.SYRIN SQ SCH (09:56)
[2023-02-15] MEDS: ASPIRIN COATED 81 MG TABLET.EC PO SCH (09:56)
[2023-02-15] MEDS ORDERED: LEVOTHYROXINE NA 150 MCG TABLET PO ONE (10:00)
[2023-02-15 11:12] VITALS: BMI 26.4
[2023-02-15] MEDS ORDERED: PNEUMOC 20-VAL CONJ-DIP CRM/PF 0.5 ML SYRINGE IM ONE (15:00)
[2023-02-15] MEDS: ATORVASTATIN CA 40 MG TABLET (FP) PO SCH (21:47)
[2023-02-15] MEDS: guaiFENesin/CODEINE 10 ML UNIT-DOSE CUPS PO PRN (22:10)
[2023-02-16] MEDS: LEVOTHYROXINE NA 150 MCG TABLET PO SCH (06:10)
[2023-02-16] MEDS: guaiFENesin/CODEINE 10 ML UNIT-DOSE CUPS PO PRN (08:27)
[2023-02-16] MEDS: ALBUTEROL SO4 2.5/IPRATROPIUM 0.5 INH SOL 3 ML VIAL.NEB. NEB PRN ×2 (08:50→20:10)
[2023-02-16 09:07] LABS: BASO % 0.5 % (0-2.0); HEMATOCRIT 34.9 % (32.4-45.2); HEMOGLOBIN 12.1 GM/dL (10.7-15.3); LYMPH % 18.7 % (8-40); MCH 30.3 pg (25.7-33.7); MCHC 34.6 g/dl (32.0-36.0); MEAN CELL VOLUME 87.4 fl (80-96); MEAN PLT VOLUME 9.3 fl (7.5-11.1); MONO % 9.2 % (3.8-10.2); NEUT % 70.6 % (42.8-82.8); PLATELET COUNT 222 10^3/uL (134-434); RBC 3.99 M/mm3 (3.60-5.2); RDW 13.2 % (11.6-15.6); WHITE BLOOD COUNT 10.2 K/mm3 (4.0-10.0)
[2023-02-16] MEDS: guaiFENesin 600 MG TABLET.ER (FP) PO SCH ×2 (09:45→21:51)
[2023-02-16] MEDS: ASPIRIN COATED 81 MG TABLET.EC PO SCH (09:46)
[2023-02-16] MEDS: PANTOPRAZOLE 40 MG TABLET PO SCH (09:46)
[2023-02-16] MEDS: CEFTRIAXONE 2 GM in DEXTROSE 5%-WATER 100 ML IVPB SCH (09:51)
[2023-02-16] MEDS: ENOXAPARIN NA (PORCINE) 40 MG/0.4 ML DISP.SYRIN SQ SCH (09:51)
[2023-02-16] MEDS: AZITHROMYCIN IVPB 500 MG/250 ML BAG IVPB SCH (09:53)
[2023-02-16] MEDS ORDERED: AZITHROMYCIN IVPB 500 MG in DEXTROSE 5%-WATER - 250 ML IVPB SCH (10:00)
[2023-02-16] MEDS: ATORVASTATIN CA 40 MG TABLET (FP) PO SCH (21:51)
[2023-02-17] MEDS: LEVOTHYROXINE NA 150 MCG TABLET PO SCH (06:11)
[2023-02-17 08:37] LABS: BASO % 0.5 % (0-2.0); EOS % 1.3 % (0-4.5); HEMATOCRIT 35.2 % (32.4-45.2); HEMOGLOBIN 11.8 GM/dL (10.7-15.3); LYMPH % 24.3 % (8-40); MCH 29.4 pg (25.7-33.7); MCHC 33.5 g/dl (32.0-36.0); MEAN PLT VOLUME 10.2 fl (7.5-11.1); MONO % 8.2 % (3.8-10.2); NEUT % 65.7 % (42.8-82.8); PLATELET COUNT 229 10^3/uL (134-434); RBC 4.01 M/mm3 (3.60-5.2); RDW 13.3 % (11.6-15.6)
[2023-02-17] MEDS: CEFTRIAXONE 2 GM in DEXTROSE 5%-WATER 100 ML IVPB SCH (10:38)
[2023-02-17] MEDS: AZITHROMYCIN IVPB 500 MG/250 ML BAG IVPB SCH (10:38)
[2023-02-17] MEDS: ENOXAPARIN NA (PORCINE) 40 MG/0.4 ML DISP.SYRIN SQ SCH (10:38)
[2023-02-17] MEDS: guaiFENesin 600 MG TABLET.ER (FP) PO SCH ×2 (10:39→21:44)
[2023-02-17] MEDS: PANTOPRAZOLE 40 MG TABLET PO SCH (10:39)
[2023-02-17] MEDS: ASPIRIN COATED 81 MG TABLET.EC PO SCH (10:39)
[2023-02-17] MEDS ORDERED: NICOTINE POLACRILEX 2 MG GUM BUC PRN (15:05)
[2023-02-17] MEDS: NICOTINE 14 MG/24 HOURS TOPICAL PATCH TD SCH (15:22)
[2023-02-17] MEDS: ALBUTEROL SO4 2.5/IPRATROPIUM 0.5 INH SOL 3 ML VIAL.NEB. NEB PRN (19:50)
[2023-02-17] MEDS: ATORVASTATIN CA 40 MG TABLET (FP) PO SCH (21:44)
[2023-02-18] MEDS: LEVOTHYROXINE NA 150 MCG TABLET PO SCH (06:08)
[2023-02-18 07:56] LABS: BASO % 0.8 % (0-2.0); EOS % 1.5 % (0-4.5); HEMATOCRIT 36.7 % (32.4-45.2); HEMOGLOBIN 12.3 GM/dL (10.7-15.3); LYMPH % 26.4 % (8-40); MCH 29.6 pg (25.7-33.7); MCHC 33.6 g/dl (32.0-36.0); MEAN PLT VOLUME 9.9 fl (7.5-11.1); MONO % 8.2 % (3.8-10.2); NEUT % 63.1 % (42.8-82.8); PLATELET COUNT 248 10^3/uL (134-434); RBC 4.17 M/mm3 (3.60-5.2); RDW 13.3 % (11.6-15.6); WHITE BLOOD COUNT 9.1 K/mm3 (4.0-10.0)
[2023-02-18] MEDS: ALBUTEROL SO4 2.5/IPRATROPIUM 0.5 INH SOL 3 ML VIAL.NEB. NEB PRN ×2 (07:58→19:50)
[2023-02-18 09:17] LABS: ERYTHROCYTE SEDIMENTATION RATE 75 mm/hr (0-30)
[2023-02-18] MEDS: ENOXAPARIN NA (PORCINE) 40 MG/0.4 ML DISP.SYRIN SQ SCH (09:29)
[2023-02-18] MEDS: CEFTRIAXONE 2 GM in DEXTROSE 5%-WATER 100 ML IVPB SCH (09:30)
[2023-02-18] MEDS: NICOTINE 14 MG/24 HOURS TOPICAL PATCH TD SCH (09:30)
[2023-02-18] MEDS: guaiFENesin 600 MG TABLET.ER (FP) PO SCH ×2 (09:30→22:23)
[2023-02-18] MEDS: ASPIRIN COATED 81 MG TABLET.EC PO SCH (09:30)
[2023-02-18] MEDS: PANTOPRAZOLE 40 MG TABLET PO SCH (09:30)
[2023-02-18] MEDS: AZITHROMYCIN IVPB 500 MG/250 ML BAG IVPB SCH (09:32)
[2023-02-18] MEDS: ATORVASTATIN CA 40 MG TABLET (FP) PO SCH (22:23)
[2023-02-19] MEDS: LEVOTHYROXINE NA 150 MCG TABLET PO SCH (06:08)
[2023-02-19] MEDS: ASPIRIN COATED 81 MG TABLET.EC PO SCH (09:32)
[2023-02-19] MEDS: CEFTRIAXONE 2 GM in DEXTROSE 5%-WATER 100 ML IVPB SCH (09:32)
[2023-02-19] MEDS: PANTOPRAZOLE 40 MG TABLET PO SCH (09:32)
[2023-02-19] MEDS: NICOTINE 14 MG/24 HOURS TOPICAL PATCH TD SCH (09:32)
[2023-02-19] MEDS: guaiFENesin 600 MG TABLET.ER (FP) PO SCH ×2 (09:32→21:37)
[2023-02-19 10:00] LABS: BASO % 0.8 % (0-2.0); EOS % 1.6 % (0-4.5); HEMATOCRIT 37.4 % (32.4-45.2); HEMOGLOBIN 12.6 GM/dL (10.7-15.3); LYMPH % 23.8 % (8-40); MCHC 33.6 g/dl (32.0-36.0); MEAN CELL VOLUME 89.3 fl (80-96); MEAN PLT VOLUME 10.2 fl (7.5-11.1); MONO % 5.8 % (3.8-10.2); PLATELET COUNT 280 10^3/uL (134-434); RBC 4.19 M/mm3 (3.60-5.2); RDW 13.4 % (11.6-15.6); WHITE BLOOD COUNT 9.7 K/mm3 (4.0-10.0)
[2023-02-19] MEDS: AZITHROMYCIN IVPB 500 MG/250 ML BAG IVPB SCH (10:32)
[2023-02-19] MEDS: ENOXAPARIN NA (PORCINE) 40 MG/0.4 ML DISP.SYRIN SQ SCH (10:33)
[2023-02-19] MEDS: ATORVASTATIN CA 40 MG TABLET (FP) PO SCH (21:38)
[2023-02-20] MEDS: LEVOTHYROXINE NA 150 MCG TABLET PO SCH (06:27)
[2023-02-20 09:30] LABS: BASO % 0.7 % (0-2.0); EOS % 2.4 % (0-4.5); HEMATOCRIT 38.4 % (32.4-45.2); LYMPH % 28.7 % (8-40); MCH 29.5 pg (25.7-33.7); MCHC 33.7 g/dl (32.0-36.0); MEAN CELL VOLUME 87.5 fl (80-96); MEAN PLT VOLUME 9.7 fl (7.5-11.1); NEUT % 62.2 % (42.8-82.8); PLATELET COUNT 304 10^3/uL (134-434); RBC 4.39 M/mm3 (3.60-5.2); RDW 13.4 % (11.6-15.6); WHITE BLOOD COUNT 9.3 K/mm3 (4.0-10.0)
[2023-02-20] MEDS: CEFTRIAXONE 2 GM in DEXTROSE 5%-WATER 100 ML IVPB SCH (10:15)
[2023-02-20] MEDS: AZITHROMYCIN IVPB 500 MG/250 ML BAG IVPB SCH (10:16)
[2023-02-20 10:33] LABS: ERYTHROCYTE SEDIMENTATION RATE 83 mm/hr (0-30)
[2023-02-20] MEDS: ENOXAPARIN NA (PORCINE) 40 MG/0.4 ML DISP.SYRIN SQ SCH (10:50)
[2023-02-20] MEDS: NICOTINE 14 MG/24 HOURS TOPICAL PATCH TD SCH (10:50)
[2023-02-20] MEDS: guaiFENesin 600 MG TABLET.ER (FP) PO SCH ×2 (10:50→21:28)
[2023-02-20] MEDS: ASPIRIN COATED 81 MG TABLET.EC PO SCH (10:50)
[2023-02-20] MEDS: PANTOPRAZOLE 40 MG TABLET PO SCH (10:50)
[2023-02-20] MEDS: ATORVASTATIN CA 40 MG TABLET (FP) PO SCH (21:28)
[2023-02-21] MEDS: LEVOTHYROXINE NA 150 MCG TABLET PO SCH (06:02)
[2023-02-21 09:14] LABS: BASO % 0.9 % (0-2.0); HEMATOCRIT 41.1 % (32.4-45.2); HEMOGLOBIN 13.6 GM/dL (10.7-15.3); LYMPH % 27.8 % (8-40); MCH 29.4 pg (25.7-33.7); MCHC 33.1 g/dl (32.0-36.0); MEAN CELL VOLUME 88.7 fl (80-96); MONO % 5.9 % (3.8-10.2); NEUT % 63.4 % (42.8-82.8); PLATELET COUNT 347 10^3/uL (134-434); RBC 4.64 M/mm3 (3.60-5.2); RDW 13.5 % (11.6-15.6); WHITE BLOOD COUNT 8.6 K/mm3 (4.0-10.0)
[2023-02-21] MEDS: NICOTINE 14 MG/24 HOURS TOPICAL PATCH TD SCH (10:00)
[2023-02-21] MEDS: guaiFENesin 600 MG TABLET.ER (FP) PO SCH (10:00)
[2023-02-21] MEDS: ENOXAPARIN NA (PORCINE) 40 MG/0.4 ML DISP.SYRIN SQ SCH (10:00)
[2023-02-21] MEDS: ASPIRIN COATED 81 MG TABLET.EC PO SCH (10:00)
[2023-02-21] MEDS: AZITHROMYCIN IVPB 500 MG/250 ML BAG IVPB SCH (10:00)
[2023-02-21] MEDS: CEFTRIAXONE 2 GM in DEXTROSE 5%-WATER 100 ML IVPB SCH (10:00)
[2023-02-21] MEDS: PANTOPRAZOLE 40 MG TABLET PO SCH (10:00)
[2023-02-21 10:05] LABS: ERYTHROCYTE SEDIMENTATION RATE 49 mm/hr (0-30)
[2023-02-21 10:24] VITALS: BP 104/62; PULSE 77; RESP 18; TEMP 98.4
[2023-02-22] MEDS ORDERED: CEFUROXIME AXETIL 500 MG TABLET PO SCH (10:00)
== END 2023-02-21 10:02 | disposition home or self-care (01) | DRG 193 ==
LOC: JER 04:45 → JERBED 07:40 → J6S 08:58
PROVIDERS: ADMIT Internal Medicine; ATTEND Internal Medicine
DX: J18.9 Pneumonia, unspecified organism (principal); J96.01 Acute respiratory failure with hypoxia; J90 Pleural effusion, not elsewhere classified; J98.11 Atelectasis; R00.0 Tachycardia, unspecified; E03.9 Hypothyroidism, unspecified; E78.5 Hyperlipidemia, unspecified; D72.829 Elevated white blood cell count, unspecified; M62.81 Muscle weakness (generalized); R05.9 Cough, unspecified; E04.1 Nontoxic single thyroid nodule; J47.9 Bronchiectasis, uncomplicated; D35.01 Benign neoplasm of right adrenal gland
CPT/HCPCS: 0241U-QW; 36415; 71046-TC-FY; 71250-TC; 80053; 80061; 81003; 82550; 82803; 83036; 83605; 83735; 83880; 84443; 84484; 85025; 85610; 85651; 85730; 86140; 86850; 86900; 86901; 87040; 87070; 87086; 87186; 87205; 87899; 93005; 93010; 93306-TC; 94010; 94640; 99285-25

== ENCOUNTER 2024-06-24 16:13 | Emergency (ER) | payer BC ==
[2024-06-24 16:20] VITALS: BP 109/70; PULSE 92; RESP 18; TEMP 97.6; BMI 25.8
== END 2024-06-24 17:03 | disposition home or self-care (01) ==
LOC: JER 16:13
DX: R05.9 Cough, unspecified (principal); R53.83 Other fatigue; J06.9 Acute upper respiratory infection, unspecified
CPT/HCPCS: 99283-25

== ENCOUNTER → 2025-06-11 | Day surgery (SDC) | payer BC | END | disposition home or self-care (01) | LOC: JRADIR 09:28 | PROVIDERS: ATTEND Internal Medicine Endocrinology, Diabetes & Metabolism | PROC: 0G9K3ZX Drainage of Thyroid Gland, Percutaneous Approach, Diagnostic (ICD-10-PCS; principal; 2025-06-11) | DX: E04.1 Nontoxic single thyroid nodule (principal) | CPT/HCPCS: 10005; 76942; 88173; 88305-TC ==